=== PATIENT | male | born 1965 | race Caucasian/White ===

== ENCOUNTER 2024-11-04 14:58 | Outpatient (AMB) | payer BC, SELFPAY ==
--- NOTE | 2024-11-04 15:01 | MHC.OFFVIS ---
Vital Signs 11/04/24 15:04 Height 5 ft 2.5 in Weight 112 lb 6.972 oz BMI 20.2 BP 130/72 Blood Pressure Location Lt brachial Position Sitting Pulse 50 Pulse Source Pulse Oximeter Pulse Oximetry (%) 100 Oxygen Delivery Method Room Air Intake Visit Reasons: Pulm Nodule/Bronchiectasis Formal Wear Rental Clerk Required: No Accompanied by: Self / Same As Patient Allergies No Known Allergies Allergy (Verified 11/04/24 15:06) HPI Comments Details: The patient is here for pulmonary evaluation. 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 She did not require any chemotherapy. She did have a CT scan of the chest back in 2018 at [facility] which I reviewed. She had a small subcentimeter pulmonary nodule in the right upper lobe. No evidence of any bronchiectasis that I could appreciate him mucus plugging. Subsequently after that she did have a CT scan of the chest that also personally reviewed from 2023 [facility]. It appears that she does have some bronchiectatic looking airways primarily left more than right base. But very minimal. No evidence of any mucus plugging. Pulmonary still significantly small now with 2 micro nodules in the right upper lobe area. The patient states that she then had another CAT scan in 2024 at [facility] which I do not have those images available. Did describe some bronchiectatic changes some mucus plugging per report. Will try to get those images as well. To see if the bronchiectatic airways are any significantly different. As far as cough the patient does have some chest congestion some cough at times. Denies any shortness of breath. She stays very active at the gym. Denies any wheezing. She does not use any inhalers. She had a spirometry that at some point which was ?normal ?. He has not had a formal pulmonary function study however. Will go ahead and request her CAT scan from [facility] and will request formal pulmonary function studies at this time. Based on the fact that there is a history of bronchiectasis I do believe the CPT device such as an Acapella valve will be helpful to provide mucus clearing. Will hold off on blood work right now until we can visualize the CAT scan images done at [facility]. Nor inhalers also warranted at this time. Will follow-up in 4 months after her PFTs and if any issues arise she can always call further recommendations. PFSH Medical History (Updated 11/04/24 @ 21:48 by Chip Uribe MD) Sarcoma Bronchiectasis Pulmonary nodules Social History (Updated 11/04/24 @ 15:08 by Mirella Giles CMA) Patient Tobacco Use Status: Former Tobacco user Review of Systems Const Denies fever(s) Eyes Reports no additional complaints ENT Reports no additional complaints Card Denies chest pain Resp Reports chest congestion, Reports cough and Denies wheezing GI Reports no additional complaints Musc Reports no additional complaints and Reports as per HPI Skin/Breast Denies rash Neuro Reports no additional complaints Endo Reports no additional complaints Riaz/Lymph Reports no additional complaints Aller/Immun Denies wheezing Physical Exam Vital Signs: Last Vital Signs Pulse 50 11/04/24 15:04 BP 130/72 11/04/24 15:04 Pulse Ox 100 11/04/24 15:04 Oxygen Delivery Method Room Air 11/04/24 15:04 BMI result Body Mass Index 20.2 Const General: comfortable HEENT Head: Yes normocephalic Neck Neck: Yes supple Chest Chest palpation & inspection: normal inspection of the chest Resp Effort & Inspection: normal respiratory effort Auscultation: clear to auscultation bilaterally Cardio Heart sounds: S1 normal heart sound present and S2 normal heart sound present GI Palpation (GI): Soft to palpation Skin General skin exam: no rashes or lesions noted Extrem General: Yes no clubbing, cyanosis or edema Assessment & Plan Assessment & Plan (1) Pulmonary nodules: Code(s): R91.8 - Other nonspecific abnormal finding of lung field Category: Medical (2) Bronchiectasis: Code(s): J47.9 - Bronchiectasis, uncomplicated Category: Medical Qualifiers: Bronchiectasis type: uncomplicated Qualified Code(s): J47.9 - Bronchiectasis, uncomplicated Plan Requesting last CT chest from [facility] PFTs Start CPT with acapella valve/flutter valve consider Bloodwork depending on the CT chest findings F/U 4 months Orders: Orders PFT pulmonary function test 2 Months J47.9 - Bronchiectasis, uncomplicated Coding Level of Care Code New Pt Level 4 (19625) Diagnoses Pulmonary nodules R91.8 Bronchiectasis without complication J47.9 Bronchiectasis type: uncomplicated Time Spent (min) 45
[2024-11-04 15:04] VITALS: BP 130/72; PULSE 50; O2SAT 100; BMI 20.2
--- OUTSIDE RECORDS SUMMARY | 2024-11-04 15:48 | XMS_ITS | Clinical Summary ---
Author Organization [facility] Address [address] [place] [address] Care Team Providers Care Operations Research Analyst Name Role Phone Unavailable Primary Care Provider Unavailabl e Allergies No known active allergies Immunizations Name Administration Dates Next Due Covid-19 (Moderna 12+) 100mcg/0.5mL dosage 05/14,04/16/2020 Social History Tobacco Use Types Packs/Day Years Used Date Smoking Tobacco: Never Assessed Sex and Gender Information Value Date Recorded Sex Assigned at Female 04/16/2020 9:47 AM EST Gender Identity Not on file Sexual Orientation Not on file Job Start Date Occupation Industry Not on file Not on file Not on file Plan of Treatment Health Maintenance Due Date Last Done Comments Hepatitis C Screening 1963 Depression Screening 1975 Preventative Health Evaluation 1981 DTap / Tdap / Td (1 - Tdap) 1982 Cervical Cancer Screening (Pap Smear) 1984 Colon Cancer Screening (Colonoscopy) 2008 Breast Cancer Screening (Mammogram) 2013 Shingrix-Zoster Vaccine (1 o f 2) 2013 COVID-19 Vaccine ( - 2023-2 5 season) 2023 05/14/2020, 04/16/2020 Influenza Vaccine (#1) 2024 RSV Adult > 60+ Yrs or (1 - 1-dose 75+ series) 2038 Hepatitis B Vaccines Aged Out No long er eligible based on patient's age to complete this topic Pneumococcal Vaccine Aged Out No long er eligible based on patient's age to complete this topic RSV Ped < 20 months Aged Out No longe r eligible based on patient's age to complete this topic
--- OUTSIDE RECORDS SUMMARY | 2024-11-04 15:48 | XMS_ITS | Encounter Summary ---
Author Organization [facility] Address [address] [place] [address] [place] [address] Phone Care Team Providers Care Reproduction Machine Loader Name Role Phone Justin Bangura MD Primary Care Provider [phone] Justin Bangura MD Unavailable [phone] Lara Ontiveros MD Unavailable [phone] Massiel Devine MD, MPH Unavailable Adam Ngo MD, MS Unavailable Yonas Hernández MD Unavailable [phone] Encounter Details Date Type Department Care Team (Late st Contact Info) Description 04/27/2020 Procedure Pass [facility] Imaging Department, [facility] [place] [address] [facility], Floor [address]1 [place] [address] Social History Tobacco Use Types Packs/Day Years Used Date Smoking Tobacco: Former Cigarettes 1.5 15 1 978 - 1992 Smokeless Tobacco: Never Alcohol Use Standard Drinks/Week Comments Yes 14 (1 standard drink = 0.6 oz pu re alcohol) 2/day Comments No Sex and Gender Information Value Date Recorded Sex Assigned at Not on file Legal Sex Female 5:54 PM EST Gender Identity Not on file Sexual Orientation Not on file documented as of this encounter Plan of Treatment Upcoming Encounters Date Type Department Care Team (Late st Contact Info) Description 08/13/2024 Procedure Pass [facility] [address] [place] [address] 08/13/2024 Procedure Pass [facility] [address] [place] [address] 08/22/2025 10:30 AM EDT Appointment [facility] Radiology [address] [place] [address] Lara Ontiveros MD [address] [place] [address] [email or web address] 08/26/2025 2:00 PM EDT Office [facility], [facility] [place] [address] [place] [address], 6th [place] [address] Lara Ontiveros MD [address] [place] [address] [email or web address] documented as of this encounter Visit Diagnoses Not on filedocumented in this encounter Care Teams Reproduction Machine Loader Relationship Specialty Start Date End Date Justin Bangura MD [address] [place] [address] PCP - General Internal Medicine 12/23/18 Justin Bangura MD [address] [place] [address] Referring Physician Internal Medicine 12/23/18 Lara Ontiveros MD [address] [place] [address] [email or web address] Primary Oncologist Medical Oncology 12/23/18 Massiel Devine MD, MPH [address] [place] [address] [email or web address] Primary Oncologist Radiation Oncology 12/23/18 Adam Ngo MD, MS [address] [place] [address] [email or web address] Primary Oncologist Surgical Oncology 12/23/18 Yonas Hernández MD [address] [place] [address] Referring Physician Hematology and Oncology 01/06/19 documented as of this encounter Additional Source Comments The information contained in this document represents components of the legal health record. It is not the complete legal health record.[facility]
== END 2024-11-04 15:43 | disposition home or self-care (01) ==
LOC: HO.HPS 14:58
PROVIDERS: PCP Internal Medicine; Referring Provider Internal Medicine; Visit Provider Hospitalist
DX: R91.8 Other nonspecific abnormal finding of lung field (principal); J47.9 Bronchiectasis, uncomplicated
CPT/HCPCS: 99204

== ENCOUNTER 2025-01-28 07:53 | Outpatient (REF) | payer BC, SELFPAY ==
--- NOTE | 2025-01-28 07:56 | PFT_ITS ---
Indication: Bronchiectasis Spirometry FEV1 to FVC 74%; FEV1 2.37 L; FVC 3.22 L. The patient declined bronchodilators. Lung Volumes Total lung capacity 97% predicted Diffusion Capacity DLCO 96% predicted Methacholine Challenge [] Flow Volume Loops Slight concavity to the expiratory limb suggesting obstructive physiology MVV 140% predicted Comparisons None Interpretation No definitive obstructive nor restrictive ventilatory defects identified. No bronchodilators were used. Lung volumes are normal and diffusing capacity within normal limits. The patient does have slight obstructive physiology on her flow volume loop but otherwise normal findings. Clinical correlation warranted. MTDD
--- OUTSIDE RECORDS SUMMARY | 2025-01-28 07:56 | XMS_ITS | Clinical Summary ---
Author Organization [facility] Address [address] [place] [address] [place] [address] Phone Care Team Providers Care Tractor Trailer Operator Name Role Phone Justin Bangura MD Primary Care Provider [phone] Justin Bangura MD Unavailable [phone] Lara Ontiveros MD Unavailable [phone] Massiel Devine MD, MPH Unavailable [phone] Adam Ngo MD, MS Unavailable Yonas Hernández MD Unavailable [phone] Allergies No known active allergies Medications ibuprofen (ADVIL,MOTRIN) 600 MG tablet Take 1 tablet (600 mg total) by mouth every 6 (six) hours as needed for pain (specific location in comments). 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 Family History Medical History Relation Comments Aortic aneurysm Father Heart disease Father Throat cancer Father Breast cancer Maternal Aunt 1 Breast cancer Maternal Aunt 2 Breast cancer Paternal Grandmother Relation Status Comments Father smoker, h/o HPV Maternal Aunt 1 Maternal Aunt 2 Paternal Grandmother Social History Tobacco Use Types Packs/Day Years Used Date Smoking Tobacco: Former Cigarettes 1.5 15 1 978 - 1992 Smokeless Tobacco: Never Alcohol Use Standard Drinks/Week Comments Yes 14 (1 standard drink = 0.6 oz pu re alcohol) 2/day Education Answer Date Recorded Are you interested in more education? Not on devonte e 08/20/2022 Are you concerned about learning? Not on file 08/20/2022 No 08/20/2022 No 08/20/2022 Digital Access Answer Date Recorded No 09/01/2022 No 09/01/2022 Reliable internet access at home? Not on file 09/01/2022 Device with a working camera? Not on file Comments No Sex and Gender Information Value Date Recorded Sex Assigned at Not on file Legal Sex Female 5:54 PM EST Gender Identity Not on file Sexual Orientation Not on file Last Filed Vital Signs Vital Sign Reading Time Taken Comments Blood Pressure 112/75 08/13/2024 9:23 AM EDT Pulse 53 08/13/2024 9:23 AM EDT Temperature 36.5 C (97.7 F) 08/13/2024 9:23 AM EDT Respiratory Rate 18 08/13/2024 9:23 AM EDT Oxygen Saturation 98% 08/13/2024 9:23 AM EDT Inhaled Oxygen Concentration - - Weight 52 kg (114 lb 10.2 oz) 08/13/2024 9:23 AM EDT Height 157.8 cm (5' 2.13 ) 08/13/2024 9:23 AM ED T Body Mass Index 20.88 08/13/2024 9:23 AM EDT Plan of Treatment Upcoming Encounters Date Type Department Care Team (Late st Contact Info) Description 08/13/2024 Procedure Pass [facility] [address] [place] [address] 08/13/2024 Procedure Pass [facility] [address] [place] [address] 08/22/2025 10:30 AM EDT Appointment [facility] [address] [place] [address] Lara Ontiveros MD [address] [place] [address] [email or web address] 08/26/2025 2:00 PM EDT Office Visit [facility], [facility] [place] [address] [place] [address], 6th [place] [address] Lara Ontiveros MD [address] [place] [address] [email or web address] Health Maintenance Due Date Last Done Comments LIPID PANEL 1963 DEPRESSION SCREENING 1975 SMOKING Hx and SMOKELESS TOBACCO SCREENING 1976 HEPATITIS C SCREENING 1981 HIV ONE-TIME SCREENING (18-6 5 YEARS) 1981 PNEUMOCOCCAL VACCINES (50+ years) (1 of 2 - PCV) 1982 PAP SMEAR 1984 MAMMOGRAM 2003 COLOGUARD 2008 COLONOSCOPY 2008 COLORECTAL CANCER SCREENING 2008 FIT TEST 2008 FOBT 2008 SIGMOIDOSCOPY 2008 VIRTUAL COLONOSCOPY 2008 INFLUENZA VACCINE (#1) 2024 9, 02/03/2015, 04/14/2014 COVID-19 VACCINE (3 - 2024-2 6 season) 2024 05/14/2021, 04/16/2020 Adult Td,Tdap Booster 10/30/2033 10/31/2023 RSV VACCINE (1 - 1-dose 75+ series) 2038 ZOSTER VACCINES Completed 07/25/2022, 01/23/2022 HEPATITIS A VACCINES Aged Out No long er eligible based on patient's age to complete this topic HIB VACCINES Aged Out No longer eligi ble based on patient's age to complete this topic MENINGOCOCCAL VACCINES (ACWY) Aged Out No longer eligible based on patient's age to complete this topic MENINGOCOCCAL VACCINES (B) Aged Out N o longer eligible based on patient's age to complete this topic Medical Devices Implanted Type Area Directory Compiler Device Identifier Shelf Expiration Date Model / Serial / Lot Graft Mesh 8x10in Phasix Synthetic Monofilament Woven Resorbable Rectangular - [id number] Implanted:Qty: 1 on 04/08/2019 by Adam Ngo MD, MS at [facility] DAVOL 10/04/2020 [id number] / / [id number] K-Wire Bone 9in 0.062 Ss Smooth [place] Dual Pk/6ea - [id number] Implanted:Qty: 1 on 04/08/2019 by Adam Ngo MD, MS at [facility] Abdomen [employer] [id number] / / Insurance OUT [facility] [place] [address] [place] [address] OUT OF STATE PPO BLUE [employer]OSS OUT OF STATE PPO [employer] OUT OF STATE PPO [employer] OUT OF STATE PPO [facility] OUT OF STATE PPO Advance Directives For more information, please contact: [phone] (9AM - 5PM [facility], Sunday-Sunday) * Full Code (Presumed) (Latest Code Status on File) Date Activated Date Inactivated Comments 04/08/2019 1:40 PM 04/10/2019 2:37 PM * Full Code (Presumed) Date Activated Date Inactivated Comments 04/08/2019 6:36 AM 04/08/2019 1:40 PM Care Teams Tractor Trailer Operator Relationship Specialty Start Date End Date Justin Bangura MD [address] [place] [address] PCP - General Internal Medicine 12/23/18 Justin Bangura MD [address] [address] Referring Physician Internal Medicine 12/23/18 Lara Ontiveros MD [address] [place] [address] [email or web address] Primary Oncologist Medical Oncology 12/23/18 Massiel Devine MD, MPH [address] [place] [address] [email or web address] Primary Oncologist Radiation Oncology 12/23/18 Adam Ngo MD, MS [address] [place] [address] [email or web address] Primary Oncologist Surgical Oncology 12/23/18 Yonas Hernández MD [address] [place] [address] Referring Physician Hematology and Oncology 01/06/19 Additional Source Comments The information contained in this document represents components of the legal health record. It is not the complete legal health record.[facility]
--- OUTSIDE RECORDS SUMMARY | 2025-01-28 07:56 | XMS_ITS | Encounter Summary ---
Author Organization [facility] Address [address] [place] [address] [place] [address] Phone Care Team Providers Care Casting Machine Control Board Operator Name Role Phone Justin Bangura MD Primary Care Provider [phone] Justin Bangura MD Unavailable [phone] Lara Ontiveros MD Unavailable [phone] Massiel Devine MD, MPH Unavailable + [phone] Adam Ngo MD, MS Unavailable Yonas Hernández MD Unavailable [phone] Encounter Details Date Type Department Care Team (Late st Contact Info) Description 01/21/2019 Procedure Pass [facility] Imaging Department, [facility] [place], MRI [address] [address] Social History Tobacco Use Types Packs/Day Years Used Date Smoking Tobacco: Former Cigarettes 1.5 15 1 978 - 1992 Smokeless Tobacco: Never Alcohol Use Standard Drinks/Week Comments Yes 6 (1 standard drink = 0.6 oz pur e alcohol) Comments Unknown Sex and Gender Information Value Date Recorded Sex Assigned at Not on file Legal Sex Female 5:54 PM EST Gender Identity Not on file Sexual Orientation Not on file documented as of this encounter Plan of Treatment Upcoming Encounters Date Type Department Care Team (Late st Contact Info) Description 08/13/2024 Procedure Pass [facility] [address] [place] [address] 08/13/2024 Procedure Pass [facility] [address] [place] [address] 08/22/2025 10:30 AM EDT Appointment [facility] Radiology [address] [place] [address] Lara Ontiveros MD [address] [place] [address] [email or web address] 08/26/2025 2:00 PM EDT [facility] [place] [address] [place] [address], 6th [place] [address] Lara Ontiveros MD [address] [place] [phone] [email or web address] documented as of this encounter Visit Diagnoses Not on filedocumented in this encounter Care Teams Casting Machine Control Board Operator Relationship Specialty Start Date End Date Justin Bangura MD [address] [place] [address] PCP - General Internal Medicine 12/23/18 Justin Bangura MD [address] [place] [address] Referring Physician Internal Medicine 12/23/18 Lara Ontiveros MD [address] [place] [address] [email or web address] Primary Oncologist Medical Oncology 12/23/18 Massiel Devine MD, MPH [address] [place] [phone] [email or web address] Primary Oncologist Radiation Oncology 12/23/18 Adam Ngo MD, MS [address] [place] [address] [email or web address] Primary Oncologist Surgical Oncology 12/23/18 Yonas Hernández MD [address] [place] [address] Referring Physician Hematology and Oncology 01/06/19 documented as of this encounter Additional Source Comments The information contained in this document represents components of the legal health record. It is not the complete legal health record.[facility]
--- OUTSIDE RECORDS SUMMARY | 2025-01-28 07:56 | XMS_ITS | Encounter Summary ---
Author Organization [facility] Address [address] [place] [address] [place] [address] Phone Care Team Providers Care Fruit Receiver Name Role Phone Justin Bangura MD Primary Care Provider [phone] Justin Bangura MD Unavailable [phone] Lara Ontiveros MD Unavailable [phone] Massiel Devine MD, MPH Unavailable + [phone] Adam Ngo MD, MS Unavailable Yonas Hernández MD Unavailable [phone] Encounter Details Date Type Department Care Team (Late st Contact Info) Description 04/27/2020 Procedure Pass [facility] Imaging Department, [facility] [place], [place] [address] [facility], Floor [address] [place] [address] Social History Tobacco Use Types Packs/Day Years [...] Procedure [facility] [address] [place] [address] 08/13/2024 Procedure Pass [facility] [address] [place] [address] 08/22/2025 10:30 AM EDT Appointment [facility] Radiology [address] [place] [address] Lara Ontiveros MD [address] [place] [phone] [email or web address] 08/26/2025 2:00 PM EDT Office Visit [facility], [facility] [place] [address] [place] [address], 6th [place] [address] Lara Ontiveros MD [address] [place] [address] [email or web address] documented as of this encounter Visit Diagnoses Not on filedocumented in this encounter Care Teams Fruit Receiver Relationship Specialty Start Date End Date Justin Bangura MD [address] [place] [address] [address] PCP - General Internal Medicine 12/23/18 Justin Bangura MD [facility] [place] [address] [address] Referring Physician Internal Medicine 12/23/18 Lara Ontiveros MD [address] [place] [phone] [email or web address] Primary Oncologist Medical Oncology 12/23/18 Massiel Devine MD, MPH [address] [place] [phone] [email or web address] Primary Oncologist Radiation Oncology 12/23/18 Adam Ngo MD, MS [address] [place] [address] [email or web address] Primary Oncologist Surgical Oncology 12/23/18 Yonas Hernández MD [address] [place] [address] Referring Physician Hematology and Oncology 01/06/19 documented as of this encounter Additional Source Comments The information contained in this document represents components of the legal health record. It is not the complete legal health record.[facility]
--- OUTSIDE RECORDS SUMMARY | 2025-01-28 07:56 | XMS_ITS | Encounter Summary ---
Author Organization [facility] Address [address] [place] [address] [place] [address] Phone Care Team Providers Care Bleach Machine Operator Name Role Phone Justin Bangura MD Primary Care Provider [phone] Justin Bangura MD Unavailable [phone] Lara Ontiveros MD Unavailable +[phone] Massiel Devine MD, MPH Unavailable + [phone] Adam Ngo MD, MS Unavailable Yonas Hernández MD Unavailable [phone] Encounter Details Date Type Department Care Team (Late st Contact Info) Description 12/23/2019 Procedure Pass [facility] Imaging Department, [facility] [place] 450 [facility], Floor L1 [place] [address] Social History Tobacco Use Types Packs/Day Years Used Date Smoking Tobacco: Former Cigarettes 1.5 15 1 978 - 1993 Smokeless Tobacco: Never Alcohol Use Standard Drinks/Week [...] Procedure Pass [facility] [address] [place] [address] 08/13/2024 Procedure Pass [facility] Radiology [address] [place] [address] 08/22/2025 10:30 AM EDT Appointment [facility] Radiology [address] [place] [address] Lara Ontiveros MD [address] [place] [address] [email or web address] 08/26/2025 2:00 PM EDT Office [facility], [facility] [place] [address] [place] [address], 6th [place] [address] Lara Ontiveros MD [address] [place] [address] [email or web address] documented as of this encounter Visit Diagnoses Not on filedocumented in this encounter Care Teams Bleach Machine Operator Relationship Specialty Start Date End Date Justin Bangura MD [address] [address] PCP - General Internal Medicine 12/23/18 Justin Bangura MD [address] [address] Referring Physician Internal Medicine 12/23/18 Lara Ontiveros MD [address] [place] [address] [email or web address] Primary Oncologist Medical Oncology 12/23/18 Massiel Devine MD, MPH [address] [place] [address] [email or web address] Primary Oncologist Radiation Oncology 12/23/18 Adam Ngo MD, MS [address] [place] [address] SEDA@[email or web address] Primary Oncologist Surgical Oncology 12/23/18 Yonas Hernández MD [address] [place] [address] Referring Physician Hematology and Oncology 01/06/19 documented as of this encounter Additional Source Comments The information contained in this document represents components of the legal health record. It is not the complete legal health record.[facility]
--- OUTSIDE RECORDS SUMMARY | 2025-01-28 07:56 | XMS_ITS | Encounter Summary ---
Author Organization [facility] Address [address] [place] [address] [place] [address] Phone Care Team Providers Care Lamination Inspector Name Role Phone Justin Bangura MD Primary Care Provider [phone] Justin Bangura MD Unavailable [phone] Lara Ontiveros MD Unavailable [phone] Massiel Devine MD, MPH Unavailable + [phone] Adam Ngo MD, MS Unavailable Yonas Hernández MD Unavailable [phone] Encounter Details Date Type Department Care Team (Late st Contact Info) Description 12/23/2019 Procedure Pass [facility] Imaging Department, [facility] [facility] [place], [place] 450 [facility], Floor L1 [place] [address] Social History Tobacco Use Types Packs/Day Years [...] Procedure Pass [facility] 70 [place] [address] 08/13/2024 Procedure Pass [facility] Radiology 70 [place] [address] 08/22/2025 10:30 AM EDT Appointment [facility] Radiology 70 [place] [address] Lara Ontiveros MD [address] [place] [address] Rhonda@[email or web address] 08/26/2025 2:00 PM EDT Office Visit [facility], [facility] [place] [address] [place] [address], 6th [place] [address] Lara Ontiveros MD [address] [place] [address] Rhonda@[email or web address] documented as of this encounter Visit Diagnoses Not on filedocumented in this encounter Care Teams Lamination Inspector Relationship Specialty Start Date End Date Justin Bangura MD [address] [address] PCP - General Internal Medicine 12/23/18 Justin Bangura MD [address] [address] Referring Physician Internal Medicine 12/23/18 Lara Ontiveros MD [address] [place] [address] [email or web address] Primary Oncologist Medical Oncology 12/23/18 Massiel Devine MD, MPH [address] [place] [address] [email or web address] Primary Oncologist Radiation Oncology 12/23/18 Adam Ngo MD, MS [address] [place] [address] SEDA@[email or web address] Primary Oncologist Surgical Oncology 12/23/18 Yonas Hernández MD [address] [place] [address] Referring Physician Hematology and Oncology 01/06/19 documented as of this encounter Additional Source Comments The information contained in this document represents components of the legal health record. It is not the complete legal health record.[facility]
--- OUTSIDE RECORDS SUMMARY | 2025-01-28 07:56 | XMS_ITS | Clinical Summary ---
Author Organization [facility] Address [address] [place] [address] Care Team Providers Care Commercial Accountant Name Role Phone Unavailable Primary Care Provider [...] (1 o f 2) 2013 COVID-19 Vaccine (2024-2 6 season) 2024 05/14/2020, 04/16/2020 Influenza Vaccine (#1) 2024 RSV [...]
--- OUTSIDE RECORDS SUMMARY | 2025-01-28 07:56 | XMS_ITS | Encounter Summary ---
Author Organization [facility] Address [address] [place] [address] Phone Care Team Providers Care General Repairer Name Role Phone Justin Bangura MD Primary Care Provider [phone] Justin Bangura MD Unavailable [phone] Lara Ontiveros MD Unavailable [phone] Massiel Devine MD, MPH Unavailable + [phone] Adam Ngo MD, MS Unavailable Yonas Hernández MD Unavailable [phone] Encounter Details Date Type Department Care Team (Late st Contact Info) Description 11/13/2023 Procedure Pass [facility] 70 [place] [address] Social History Tobacco Use Types Packs/Day Years [...] st Contact Info) Description 08/13/2024 Procedure Pass [facility] Radiology 70 [place] [address] 08/13/2024 Procedure Pass [facility] Radiology 70 [place] [address] 08/22/2025 10:30 AM EDT Appointment [facility] Radiology [address] [place] [address] Lara Ontiveros MD [address] [place] [address] [email or web address]@[email or web address] 08/26/2025 2:00 PM EDT Office Visit [facility], [facility] [place] [address] [place] [address], 6th [place] [address] Lara Ontiveros MD [address] [place] [address] [email or web address]@[email or web address] documented as of this encounter Visit Diagnoses Not on filedocumented in this encounter Care Teams General Repairer Relationship Specialty Start Date End Date Justin Bangura MD [address] [employer] [place] [address] PCP - General Internal Medicine 12/23/18 Justin Banguar MD [address] [place] [address] Referring Physician Internal Medicine 12/23/18 Lara Ontiveros MD [address] [place] [address] Rhonda@[email or web address] Primary Oncologist Medical Oncology 12/23/18 Massiel Devine MD, MPH [address] [place] [address] [email or web address] Primary Oncologist Radiation Oncology 12/23/18 Adam Ngo MD, MS [address] [place] [address] SEDA@[email or web address] Primary Oncologist Surgical Oncology 12/23/18 Yonas Hernández MD [address] [place] [address] Referring Physician Hematology and Oncology 01/06/19 documented as of this encounter Additional Source Comments The information contained in this document represents components of the legal health record. It is not the complete legal health record.[facility]
--- OUTSIDE RECORDS SUMMARY | 2025-01-28 07:56 | XMS_ITS | Encounter Summary ---
Author Organization [facility] Address [address] [place] [address] [place] [address] Phone Care Team Providers Care Cookie Mixer Helper Name Role Phone Justin Bangura MD Primary Care Provider [phone] Justin Bangura MD Unavailable [phone] Lara Ontiveros MD Unavailable [phone] Massiel Devine MD, MPH Unavailable + [phone] Adam Ngo MD, MS Unavailable Yonas Hernández MD Unavailable [phone] Encounter Details Date Type Department Care Team (Late st Contact Info) Description 04/08/2019 Procedure Pass [facility] Periop [address] [place] [address] Social History Tobacco Use Types Packs/Day Years [...] st Contact Info) Description 08/13/2024 Procedure Pass [facility] Radiology [address] [place] [address] 08/13/2024 Procedure Pass [facility] [address] [place] [address] 08/22/2025 10:30 AM EDT Appointment [facility] Radiology [address] [place] [address] Lara Ontiveros MD [address] [place] [address] Rhonda@[email or web address] 08/26/2025 2:00 PM EDT Office [facility] [place] [address] [place] [address], 6th [place] [address] Lara Ontiveros MD [address] [place] [address] [email or web address] documented as of this encounter Visit Diagnoses Not on filedocumented in this encounter Care Teams Cookie Mixer Helper Relationship Specialty Start Date End Date Justin Bangura MD [address] [place] [address] PCP - General Internal Medicine 12/23/18 Justin Bangura MD [address] [place] [address] Referring Physician Internal Medicine 12/23/18 Lara Ontiveros MD [address] [place] [address] Rhonda@[email or web address] Primary Oncologist Medical Oncology 12/23/18 Massiel Devine MD, MPH [address] [place] [address] [email or web address] Primary Oncologist Radiation Oncology 12/23/18 Adam Ngo MD, MS [address] [place] [address] [email or web address] Primary Oncologist Surgical Oncology 12/23/18 Yonas Hernández MD [address] [place] [address] Referring Physician Hematology and Oncology 01/06/19 documented as of this encounter Additional Source Comments The information contained in this document represents components of the legal health record. It is not the complete legal health record.[facility]
--- OUTSIDE RECORDS SUMMARY | 2025-01-28 07:56 | XMS_ITS | Encounter Summary ---
Author Organization [facility] Address [address] [place] [address] [place] [address] Phone Care Team Providers Care Refiner Operator Name Role Phone Justin Bangura MD Primary Care Provider + [phone] Justin Bangura MD Unavailable [phone] Lara Ontiveros MD Unavailable [phone] Massiel Devine MD, MPH Unavailable + [phone] Adam Ngo MD, MS Unavailable Yonas Hernández MD Unavailable [phone] Encounter Details Date Type Department Care Team (Late st Contact Info) Description 01/06/2019 Procedure Pass [facility] MR Imaging, [place] [address] [place] [address] Social History Tobacco Use Types Packs/Day Years [...] on file documented as of this encounter Last Filed Vital Signs Vital Sign Reading Time Taken Comments Blood Pressure - - Pulse - - Temperature - - Respiratory Rate - - Oxygen Saturation - - Inhaled Oxygen Concentration - - Weight 51.7 kg (114 lb) 01/06/2019 4:39 PM EDT Height 160 cm (5' 3 ) 01/06/2019 4:39 PM EDT Body Mass Index 20.19 01/06/2019 4:39 PM EDT documented in this encounter Plan of Treatment Upcoming Encounters Date Type Department Care Team (Late st Contact Info) Description 08/13/2024 Procedure Pass [facility] Radiology 70 [place] [address] 08/13/2024 Procedure Pass [facility] Radiology 70 [place] [address] 08/22/2025 10:30 AM EDT Appointment [facility] Radiology [address] [place] [address] Lara Ontiveros MD [address] [place] [address] Rhonda@[email or web address] 08/26/2025 2:00 PM EDT Office Visit [facility], [facility] [address], 6th [place] [address] Lara Ontiveros MD [address] [place] [address] Rhonda@[email or web address] documented as of this encounter Visit Diagnoses Not on filedocumented in this encounter Care Teams Refiner Operator Relationship Specialty Start Date End Date Justin Bangura MD [address] [place] [address] PCP - General Internal Medicine 12/23/18 Justin Bangura MD [address] [place] [address] Referring Physician Internal Medicine 12/23/18 Lara Ontiveros MD [address] [place] [address] Rhonda@[email or web address] Primary Oncologist Medical Oncology 12/23/18 Massiel Devine MD, MPH [address] [place] [address] Princess@[email or web address] Primary Oncologist Radiation Oncology 12/23/18 Adam Ngo MD, MS [address] [place] [address] SEDA@[email or web address] Primary Oncologist Surgical Oncology 12/23/18 Yonas Hernández MD [address] [place] [address] Referring Physician Hematology and Oncology 01/06/19 documented as of this encounter Additional Source Comments The information contained in this document represents components of the legal health record. It is not the complete legal health record.[facility]
--- OUTSIDE RECORDS SUMMARY | 2025-01-28 07:56 | XMS_ITS | Encounter Summary ---
Author Organization [facility] Address [address] [place] [address] [place] [address] Phone Care Team Providers Care Facility Specialist Name Role Phone Justin Bangura MD Primary Care Provider [phone] Justin Bangura MD Unavailable [phone] Lara Ontiveros MD Unavailable [phone] Massiel Devine MD, MPH Unavailable + [phone] Adam Ngo MD, MS Unavailable Yonas Hernández MD Unavailable [phone] Encounter Details Date Type Department Care Team (Late st Contact Info) Description 04/27/2020 Procedure Pass [facility] Imaging Department, [facility] [place], [place] 450 [facility], Floor L1 [place] [address] Social History Tobacco Use Types Packs/Day Years [...] Procedure Pass [facility] 70 [place] [address] 08/13/2024 Procedure Pass [facility] Radiology 70 [place] [address] 08/22/2025 10:30 AM EDT Appointment [facility] Radiology 70 [place] [address] Lara Ontiveros MD [address] [place] [address] Rhonda@[email or web address] 08/26/2025 2:00 PM EDT Office Visit [facility], [facility] [place] [address] [place] [address], 6th [place] [address] Lara Ontiveros MD [address] [place] [address] Rhonda@[facility] documented as of this encounter Visit Diagnoses Not on filedocumented in this encounter Care Teams Facility Specialist Relationship Specialty Start Date End Date Justin Bangura MD [address] [address] PCP - General Internal Medicine 12/23/18 Justin Bangura MD [facility] [place] [address] [address] Referring Physician Internal Medicine 12/23/18 Lara Ontiveros MD [address] [place] [address] Rhonda@[email or web address] Primary Oncologist Medical Oncology 12/23/18 Massiel Devine MD, MPH [address] [place] [address] [email or web address] Primary Oncologist Radiation Oncology 12/23/18 Adam Ngo MD, MS [address] [place] [address] SEDA@[email or web address] Primary Oncologist Surgical Oncology 12/23/18 Yonas Hernández MD [address] [place] [address] Referring Physician Hematology and Oncology 01/06/19 documented as of this encounter Additional Source Comments The information contained in this document represents components of the legal health record. It is not the complete legal health record.[facility]
--- OUTSIDE RECORDS SUMMARY | 2025-01-28 07:57 | XMS_ITS | Encounter Summary ---
Author Organization [facility] Address [address] [place] [address] [place] [address] Phone Care Team Providers Care Sanitary Engineering Teacher Name Role Phone Justin Bangura MD Primary Care Provider [phone] Justin Bangura MD Unavailable +[phone] Lara Ontiveros MD Unavailable [phone] Massiel Devine MD, MPH Unavailable + [phone] Adam Ngo MD, MS Unavailable Yonas Hernández MD Unavailable [phone] Encounter Details Date Type Department Care Team (Late st Contact Info) Description 05/10/2022 Procedure Pass [facility] Imaging Department, [facility] [place], [place] 450 [facility], Floor L1 [place] [address] Social History Tobacco Use Types Packs/Day Years [...] Procedure Pass [facility] 70 [place] [address] 08/13/2024 Procedure Pass [facility] [place] [facility] Radiology 70 [place] [address] 08/22/2025 10:30 AM EDT Appointment [facility] Radiology 70 [place] [address] Lara Ontiveros MD [address] [place] [address] Rhonda@[email or web address] 08/26/2025 2:00 PM EDT Office Visit [facility], [facility] [place] [address] [place] [address], 6th [place] [address] Lara Ontiveros MD [address] [place] [address] Rhonda@[facility] documented as of this encounter Visit Diagnoses Not on filedocumented in this encounter Care Teams Sanitary Engineering Teacher Relationship Specialty Start Date End Date Justin Bangura MD [address] [address] PCP - General Internal Medicine 12/23/18 Justin Bangura MD [facility] [place] [address] [address] Referring Physician Internal Medicine 12/23/18 Lara Ontiveros MD [address] [place] [address] Rhonda[email or web address] Primary Oncologist Medical Oncology 12/23/18 Massiel Devine MD, MPH [address] [place] [address] [email or web address] Primary Oncologist Radiation Oncology 12/23/18 Adam Ngo MD, MS [address] [place] [address] [email or web address] Primary Oncologist Surgical Oncology 12/23/18 Yonas Hernández MD [address] [place] [address] Referring Physician Hematology and Oncology 01/06/19 documented as of this encounter Additional Source Comments The information contained in this document represents components of the legal health record. It is not the complete legal health record.[facility]
--- OUTSIDE RECORDS SUMMARY | 2025-01-28 07:57 | XMS_ITS | Encounter Summary ---
Author Organization [facility] Address [address] [place] [address] [place] [address] Phone Care Team Providers Care Shield Cleaner Name Role Phone Justin Bangura MD Primary Care Provider [phone] Justin Bangura MD Unavailable [phone] Lara Ontiveros MD Unavailable [phone] Massiel Devine MD, MPH Unavailable + [phone] Adam Ngo MD, MS Unavailable Yonas Hernández MD Unavailable [phone] Encounter Details Date Type Department Care Team (Late st Contact Info) Description 05/03/2021 Procedure Pass [facility] Imaging Department, [facility] [facility] [place], [place] 450 [facility], Floor L1 [place] [address] Social History Tobacco Use Types Packs/Day Years [...] Procedure Pass [facility] 70 [place] [address] 08/13/2024 Procedure Pass [facility]iology [address] [place] [address] 08/22/2025 10:30 AM EDT Appointment [facility] Radiology [address] [place] [address] Lara Ontiveros MD [address] [place] [address] Rhonda@[email or web address] 08/26/2025 2:00 PM EDT Office Visit [facility], [facility] [place] [address] [place] [address], 6th [place] [address] Lara Ontiveros MD [address] [place] [address] Rhonda@[facility] documented as of this encounter Visit Diagnoses Not on filedocumented in this encounter Care Teams Shield Cleaner Relationship Specialty Start Date End Date Justin Bangura MD [address] [employer] [address] [address] PCP - General Internal Medicine 12/23/18 Justin Bangura MD [facility] [employer] [address] [address] Referring Physician Internal Medicine 12/23/18 Lara Ontiveros MD [address] [place] [address] Rhonda@[email or web address] Primary Oncologist Medical Oncology 12/23/18 Massiel Devine MD, MPH [address] [place] [address] [email or web address] Primary Oncologist Radiation Oncology 12/23/18 Adam Ngo MD, MS [address] [place] [address] SEDA@[email or web address] Primary Oncologist Surgical Oncology 12/23/18 Yonas Hernández MD [address] [place] [address] Referring Physician Hematology and Oncology 01/06/19 documented as of this encounter Additional Source Comments The information contained in this document represents components of the legal health record. It is not the complete legal health record.[facility]
--- OUTSIDE RECORDS SUMMARY | 2025-01-28 07:57 | XMS_ITS | Encounter Summary ---
Author Organization [facility] Address [address] [place] [address] [place] [address] Phone Care Team Providers Care Marketing Liaison Name Role Phone Justin Bangura MD Primary Care Provider [phone] Justin Bangura MD Unavailable [phone] Lara Ontiveros MD Unavailable [phone] Massiel Devine MD, MPH Unavailable + [phone] Adam Ngo MD, MS Unavailable Yonas Hernández MD Unavailable [phone] Encounter Details Date Type Department Care Team (Late st Contact Info) Description 05/10/2022 Procedure Pass [facility] Imaging Department, [facility] [place] 450 [facility], Floor L1 [place] [address] Social History Tobacco Use Types Packs/Day Years [...] Procedure Pass [facility] 70 [place] [address] 08/13/2024 Procedure Pass [facility] 70 [place] [address] 08/22/2025 10:30 AM EDT Appointment [facility] Radiology 70 [place] [address] Lara Ontiveros MD [address] [place] [address] [email or web address]@[email or web address] 08/26/2025 2:00 PM EDT Office [facility], [facility] [place] [address] [place] [address], 6th [place] [address] Lara Ontiveros MD [address] [place] [address] [email or web address]@[email or web address] documented as of this encounter Visit Diagnoses Not on filedocumented in this encounter Care Teams Marketing Liaison Relationship Specialty Start Date End Date Justin Bangura MD [address] [facility] [address] [address] PCP - General Internal Medicine 12/23/18 Justin Bangura MD [facility] [address] [address] Referring Physician Internal Medicine 12/23/18 Lara Ontiveros MD [address] [place] [address] Rhonda@[email or web address] Primary Oncologist Medical Oncology 12/23/18 Massiel Devine MD, MPH [address] [place] [address] Princess@[email or web address] Primary Oncologist Radiation Oncology 12/23/18 Adam Ngo MD, MS [address] [place] [address] [email or web address] Primary Oncologist Surgical Oncology 12/23/18 Yonas Hernández MD [address] [place] [address] Referring Physician Hematology and Oncology 01/06/19 documented as of this encounter Additional Source Comments The information contained in this document represents components of the legal health record. It is not the complete legal health record.[facility]
--- OUTSIDE RECORDS SUMMARY | 2025-01-28 07:57 | XMS_ITS | Encounter Summary ---
Author Organization [facility] Address [address] [place] [address] [place] [address] Phone Care Team Providers Care Operational Intelligence Analyst Name Role Phone Justin Bangura MD Primary Care Provider [phone] Justin Bangura MD Unavailable [phone] Lara Ontiveros MD Unavailable [phone] Massiel Devine MD, MPH Unavailable + [phone] Adam Ngo MD, MS Unavailable Yonas Hernández MD Unavailable [phone] Encounter Details Date Type Department Care Team (Late st Contact Info) Description 08/24/2020 Procedure Pass [facility] Imaging Department, [facility] [place] 450 [facility], Floor L1 [place] [address] Social History Tobacco Use Types Packs/Day Years [...] Procedure Pass [facility] 70 [place] [address] 08/13/2024 Procedure Pass [facility] Radiology 70 [place] [address] 08/22/2025 10:30 AM EDT Appointment [facility] Radiology 70 [place] [address] Lara Ontiveros MD [address] [place] [address] Rhonda@[email or web address] beds [facility] 08/26/2025 2:00 PM EDT Office Visit [facility], [facility] [place] [address] [place] [address], 6th [place] [address] Lara Ontiveros MD [address] [place] [address] [email or web address]@[email or web address] 234 beds at [facility] documented as of this encounter Visit Diagnoses Not on filedocumented in this encounter Care Teams Operational Intelligence Analyst Relationship Specialty Start Date End Date Justin Bangura MD [address] [employer] [address] [address] PCP - General Internal Medicine 12/23/18 Justin Bangura MD [facility] [employer] [address] [address] Referring Physician Internal Medicine 12/23/18 Lara Ontiveros MD [address] [place] [address] Rhonda@[email or web address] Primary Oncologist Medical Oncology 12/23/18 Massiel Devine MD, MPH [address] [place] [address] [email or web address] Primary Oncologist Radiation Oncology 12/23/18 Adam Ngo MD, MS [address] [place] [address] SEDA@[email or web address] Primary Oncologist Surgical Oncology 12/23/18 Yonas Hernández MD [address] [place] [address] Referring Physician Hematology and Oncology 01/06/19 documented as of this encounter Additional Source Comments The information contained in this document represents components of the legal health record. It is not the complete legal health record.[facility]
--- OUTSIDE RECORDS SUMMARY | 2025-01-28 07:57 | XMS_ITS | Encounter Summary ---
Author Organization [facility] Address [address] [place] [address] [place] [address] Phone Care Team Providers Care Financial Reserve Clerk Name Role Phone Justin Bangura MD Primary Care Provider [phone] Justin Bangura MD Unavailable [phone] Lara Ontiveros MD Unavailable [phone] Massiel Devine MD, MPH Unavailable + [phone] Adam Ngo MD, MS Unavailable Yonas Hernández MD Unavailable [phone] Encounter Details Date Type Department Care Team (Late st Contact Info) Description 11/20/2019 Procedure Pass [facility] Imaging Department, [facility] [place], [place] 450 [facility], Floor L1 [place] [address] Social History Tobacco Use Types Packs/Day Years [...] Procedure Pass [facility] 70 [place] [address] 08/13/2024 Procedure Pass [facility] Radiology 70 [place] [address] 08/22/2025 10:30 AM EDT Appointment [facility] Radiology 70 [place] [address] Lara Ontiveros MD [address] [place] [address] Rhonda@[email or web address] 08/26/2025 2:00 PM EDT Office Visit [facility], [facility] [place] [address] [place] [address], 6th [place] [address] Lara Ontiveros MD [address] [place] [address] Rhonda@[facility] documented as of this encounter Visit Diagnoses Not on filedocumented in this encounter Care Teams Financial Reserve Clerk Relationship Specialty Start Date End Date Justin Bangura MD [address] [employer] [address] [address] PCP - General Internal Medicine 12/23/18 Justin Bangura MD [address] [employer] [address] [address] Referring Physician Internal Medicine 12/23/18 Lara Ontiveros MD [address] [place] [address] Rhonda@[email or web address] Primary Oncologist Medical Oncology 12/23/18 Massiel Devine MD, MPH [address] [place] [address] Princess@[email or web address] Primary Oncologist Radiation Oncology 12/23/18 Adam Ngo MD, MS [address] [place] [address] SEDA@[email or web address] Primary Oncologist Surgical Oncology 12/23/18 Yonas Hernández MD [address] [place] [address] Referring Physician Hematology and Oncology 01/06/19 documented as of this encounter Additional Source Comments The information contained in this document represents components of the legal health record. It is not the complete legal health record.[facility]
--- OUTSIDE RECORDS SUMMARY | 2025-01-28 07:57 | XMS_ITS | Encounter Summary ---
Author Organization [facility] Address [address] [place] [address] [place] [address] Phone Care Team Providers Care Straightener Hand Name Role Phone Justin Bangura MD Primary Care Provider [phone] Justin Bangura MD Unavailable [phone] Lara Ontiveros MD Unavailable [phone] Massiel Devine MD, MPH Unavailable + [phone] Adam Ngo MD, MS Unavailable Yonas Hernández MD Unavailable [phone] Encounter Details Date Type Department Care Team (Late st Contact Info) Description 12/28/2020 Procedure Pass [facility] Imaging Department, [place] [place] 450 [facility], Floor L1 [place] [address] Social History Tobacco Use Types Packs/Day Years [...] Procedure Pass [facility] 70 [place] [address] 08/13/2024 Procedure Pass [facility]iology 70 [place] [address] 08/22/2025 10:30 AM EDT Appointment [facility] Radiology 70 [place] [address] Lara Ontiveros MD [address] [place] [address] Rhonda@[facility] 08/26/2025 2:00 PM EDT Office Visit [facility], [facility] [place] [address] [place] [address], 6th [place] [address] Lara Ontiveros MD [address] [place] [address] Rhonda@[facility] documented as of this encounter Visit Diagnoses Not on filedocumented in this encounter Care Teams Straightener Hand Relationship Specialty Start Date End Date Justin Bangura MD [address] [employer] [address] [address] PCP - General Internal Medicine 12/23/18 Justin Bangura MD [facility] [employer] [address] [address] Referring Physician Internal Medicine 12/23/18 Lara Ontiveros MD [address] [place] [address] Rhonda@[email or web address] Primary Oncologist Medical Oncology 12/23/18 Massiel Devine MD, MPH [address] [place] [address] Princess@[email or web address] Primary Oncologist Radiation Oncology 12/23/18 Adam Ngo MD, MS [address] [place] [address] SEDA@[email or web address] Primary Oncologist Surgical Oncology 12/23/18 Yonas Hernández MD [address] [place] [address] Referring Physician Hematology and Oncology 01/06/19 documented as of this encounter Additional Source Comments The information contained in this document represents components of the legal health record. It is not the complete legal health record.[facility]
--- OUTSIDE RECORDS SUMMARY | 2025-01-28 07:57 | XMS_ITS | Encounter Summary ---
Author Organization [facility] Address [address] [facility] [address] [place] [address] Phone Care Team Providers Care Benzene Washer Operator Name Role Phone Justin Bangura MD Primary Care Provider [phone] Justin Bangura MD Unavailable [phone] Lara Ontiveros MD Unavailable [phone] Massiel Devine MD, MPH Unavailable + [phone] Adam Ngo MD, MS Unavailable Yonas Hernández MD Unavailable [phone] Encounter Details Date Type Department Care Team (Late st Contact Info) Description 11/13/2023 Procedure Pass [facility] 70 [place] [address] Social History Tobacco Use Types Packs/Day Years [...] st Contact Info) Description 08/13/2024 Procedure Pass [facility] Radiology 70 [place] [address] 08/13/2024 Procedure Pass [facility] Radiology 70 [place] [address] 08/22/2025 10:30 AM EDT Appointment [facility] Radiology [address] [place] [address] Lara Ontiveros MD [address] [place] [address] Rhonda@[email or web address] 08/26/2025 2:00 PM EDT Office Visit [facility], [facility] [place] [address] [place] [address], 6th [place] [address] Lara Ontiveros MD [address] [place] [address] Rhonda@[email or web address] documented as of this encounter Visit Diagnoses Not on filedocumented in this encounter Care Teams Benzene Washer Operator Relationship Specialty Start Date End Date Justin Bangura MD [address] [employer] [address] [place] [address] PCP - General Internal Medicine 12/23/18 Justin Bangura MD [address] [employer] [address] [place] [address] Referring Physician Internal Medicine 12/23/18 Lara Ontiveros MD [address] [place] [address] Rhonda@[email or web address] Primary Oncologist Medical Oncology 12/23/18 Massiel Devine MD, MPH [address] [place] [address] Princess@[email or web address] Primary Oncologist Radiation Oncology 12/23/18 Adam Ngo MD, MS [address] [place] [address] SEDA@[facility] Primary Oncologist Surgical Oncology 12/23/18 Yonas Hernández MD [address] [place] [address] Referring Physician Hematology and Oncology 01/06/19 documented as of this encounter Additional Source Comments The information contained in this document represents components of the legal health record. It is not the complete legal health record.[facility]
--- OUTSIDE RECORDS SUMMARY | 2025-01-28 07:57 | XMS_ITS | Encounter Summary ---
Author Organization [facility] Address [address] [place] [address] [place] [address] Phone Care Team Providers Care Oracle Applications Analyst Name Role Phone Justin Bangura MD Primary Care Provider [phone] Justin Bangura MD Unavailable [phone] Lara Ontiveros MD Unavailable [phone] Massiel Devine MD, MPH Unavailable + [phone] Adam Ngo MD, MS Unavailable Yonas Hernández MD Unavailable [phone] Encounter Details Date Type Department Care Team (Late st Contact Info) Description 12/28/2020 Procedure Pass [facility] Imaging Department, [place] [facility] [place] 450 [facility], Floor L1 [place] [address] Social History Tobacco Use Types Packs/Day Years [...] Procedure Pass [facility] 70 [place] [address] 08/13/2024 Procedure Pass [facility] Radiology 70 [place] [address] 08/22/2025 10:30 AM EDT Appointment [facility] Radiology 70 [place] [address] Lara Ontiveros MD [address] [place] [address] Rhonda@[email or web address] 08/26/2025 2:00 PM EDT Office Visit [facility], [facility] [place] [address] [place] [address], 6th [place] [address] Lara Ontiveros MD [address] [place] [address] [email or web address] documented as of this encounter Visit Diagnoses Not on filedocumented in this encounter Care Teams Oracle Applications Analyst Relationship Specialty Start Date End Date Justin Bangura MD [address] [employer] [address] [address] PCP - General Internal Medicine 12/23/18 Justin Bangura MD [facility] [employer] [address] [address] Referring Physician Internal Medicine 12/23/18 Lara Ontiveros MD [address] [place] [address] Rhonda@[email or web address] Primary Oncologist Medical Oncology 12/23/18 Massiel Devine MD, MPH [address] [place] [address] [email or web address] Primary Oncologist Radiation Oncology 12/23/18 Adam Ngo MD, MS [address] [place] [address] SEDA@[email or web address] Primary Oncologist Surgical Oncology 12/23/18 Yonas Hernández MD [address] [place] [address] Referring Physician Hematology and Oncology 01/06/19 documented as of this encounter Additional Source Comments The information contained in this document represents components of the legal health record. It is not the complete legal health record.[facility]
--- OUTSIDE RECORDS SUMMARY | 2025-01-28 07:57 | XMS_ITS | Encounter Summary ---
Author Organization [facility] Address [address] [place] [address] [place] [address] Phone Care Team Providers Care Freight Hustler Name Role Phone Justin Bangura MD Primary Care Provider [phone] Justin Bangura MD Unavailable [phone] Lara Ontiveros MD Unavailable [phone] Massiel Devine MD, MPH Unavailable + [phone] Adam Ngo MD, MS Unavailable Yonas Hernández MD Unavailable [phone] Encounter Details Date Type Department Care Team (Late st Contact Info) Description 08/24/2020 Procedure Pass [facility] Imaging Department, [facility] [place], [place] 450 [facility], Floor L1 [place] [address] Social History Tobacco Use Types Packs/Day Years [...] Procedure Pass [facility] 70 [place] [address] 08/13/2024 Procedure Pass [facility]iology 70 [place] [address] 08/22/2025 10:30 AM EDT Appointment [facility] Radiology 70 [place] [address] Lara Ontiveros MD [address] [place] [address] Rhonda@[facility] 08/26/2025 2:00 PM EDT Office Visit [facility], [facility] [place] [address] [place] [address], 6th [place] [address] Lara Ontiveros MD [address] [place] [address] Rhonda@[facility] documented as of this encounter Visit Diagnoses Not on filedocumented in this encounter Care Teams Freight Hustler Relationship Specialty Start Date End Date Justin Bangura MD [address] [employer] [address] [address] PCP - General Internal Medicine 12/23/18 Justin Bangura MD [facility] [employer] [address] [address] Referring Physician Internal Medicine 12/23/18 Lara Ontiveros MD [address] [place] [address] Rhonda@[email or web address] Primary Oncologist Medical Oncology 12/23/18 Massiel Devine MD, MPH [address] [place] [address] [email or web address] Primary Oncologist Radiation Oncology 12/23/18 Adam Ngo MD, MS [address] [place] [address] SEDA@[email or web address] Primary Oncologist Surgical Oncology 12/23/18 Yonas Hernández MD [address] [place] [address] Referring Physician Hematology and Oncology 01/06/19 documented as of this encounter Additional Source Comments The information contained in this document represents components of the legal health record. It is not the complete legal health record.[facility]
--- OUTSIDE RECORDS SUMMARY | 2025-01-28 07:57 | XMS_ITS | Encounter Summary ---
Author Organization [facility] Address [address] [place] [address] [place] [address] Phone Care Team Providers Care Manager Data Center Name Role Phone Justin Bangura MD Primary Care Provider [phone] Justin Bangura MD Unavailable [phone] Lara Ontiveros MD Unavailable [phone] Massiel Devine MD, MPH Unavailable + [phone] Adam Ngo MD, MS Unavailable Yonas Hernández MD Unavailable [phone] Encounter Details Date Type Department Care Team (Late st Contact Info) Description 11/07/2022 Procedure Pass [facility] Imaging Department, [facility] [place], [place] 450 [facility], Floor L1 [place] [address] Social History Tobacco Use Types Packs/Day Years [...] st Contact Info) Description 08/13/2024 Procedure Pass [facility] Radiology 70 [place] [address] 08/13/2024 Procedure Pass [facility] 70 [place] [address] 08/22/2025 10:30 AM EDT Appointment [facility] Radiology [address] [place] [address] Lara Ontiveros MD [address] [place] [address] Rhonda@[facility] 08/26/2025 2:00 PM EDT Office Visit [facility], [facility] [facility] [place] [address] [place] [address], 6th [place] [address] Lara Ontiveros MD [address] [place] [address] Rhonda@[facility] documented as of this encounter Visit Diagnoses Not on filedocumented in this encounter Care Teams Manager Data Center Relationship Specialty Start Date End Date Justin Bangura MD [address] [place] [address] PCP - General Internal Medicine 12/23/18 Justin Bangura MD [address] [place] [address] Referring Physician Internal Medicine 12/23/18 Lara Ontiveros MD [address] [place] [address] [email or web address] Primary Oncologist Medical Oncology 12/23/18 Massiel Devine MD, MPH [address] [place] [address] Princess@[email or web address] Primary Oncologist Radiation Oncology 12/23/18 Adam Ngo MD, MS [address] [place] [address] SEDA@[email or web address] Primary Oncologist Surgical Oncology 12/23/18 Yonas Hernández MD [address] [place] [address] Referring Physician Hematology and Oncology 01/06/19 documented as of this encounter Additional Source Comments The information contained in this document represents components of the legal health record. It is not the complete legal health record.[facility]
--- OUTSIDE RECORDS SUMMARY | 2025-01-28 07:57 | XMS_ITS | Encounter Summary ---
Author Organization [facility] Address [address] [place] [address] [place] [address] Phone Care Team Providers Care Financial Report Service Sales Agent Name Role Phone Justin Bangura MD Primary Care Provider [phone] Justin Bangura MD Unavailable [phone] Lara Ontiveros MD Unavailable [phone] Massiel Devine MD, MPH Unavailable + [phone] Adam Ngo MD, MS Unavailable Yonas Hernández MD Unavailable [phone] Encounter Details Date Type Department Care Team (Late st Contact Info) Description 05/03/2021 Procedure Pass [facility] Imaging Department, [facility] [place] [address] [facility], Floor L1 [place] [address] Social History Tobacco Use Types Packs/Day Years [...] [facility] 70 [place] [address] 08/13/2024 Procedure Pass [facility] 70 [place] [address] 08/22/2025 10:30 AM EDT Appointment [facility] Radiology 70 [place] [address] Lara Ontiveros MD [address] [place] [address] [email or web address] 08/26/2025 2:00 PM EDT Office [facility], [facility] [place] [address] [place] [address], 6th [place] [address] Lara Ontiveros MD [address] [place] [address] Rhonda@[email or web address] documented as of this encounter Visit Diagnoses Not on filedocumented in this encounter Care Teams Financial Report Service Sales Agent Relationship Specialty Start Date End Date Justin Bangura MD [address] [employer] [address] [address] PCP - General Internal Medicine 12/23/18 Justin Bangura MD [facility] [employer] [address] [address] Referring Physician Internal Medicine 12/23/18 Lara Ontiveros MD [address] [place] [address] [email or web address] Primary Oncologist Medical Oncology 12/23/18 Massiel Devine MD, MPH [address] [place] [phone] [email or web address] Primary Oncologist Radiation Oncology 12/23/18 Adam Ngo MD, MS [address] [place] [address] [email or web address] Primary Oncologist Surgical Oncology 12/23/18 Yonas Hernández MD [address] [place] [address] Referring Physician Hematology and Oncology 01/06/19 documented as of this encounter Additional Source Comments The information contained in this document represents components of the legal health record. It is not the complete legal health record.[facility]
--- OUTSIDE RECORDS SUMMARY | 2025-01-28 07:57 | XMS_ITS | Encounter Summary ---
Author Organization [facility] Address [address] [place] [address] [place] [address] Phone Care Team Providers Care Front Facer Name Role Phone Justin Bangura MD Primary Care Provider [phone] Justin Bangura MD Unavailable [phone] Lara Ontiveros MD Unavailable [phone] Massiel Devine MD, MPH Unavailable + [phone] Adam Ngo MD, MS Unavailable Yonas Hernández MD Unavailable [phone] Encounter Details Date Type Department Care Team (Late st Contact Info) Description 11/20/2019 Procedure Pass [facility] Imaging Department, [facility] [place] [address] [facility], Floor L1 [place] [address] Social History Tobacco Use Types Packs/Day Years [...] Procedure [facility] 70 [place] [address] 08/13/2024 Procedure Pass [facility]iology 70 [place] [address] 08/22/2025 10:30 AM EDT Appointment [facility] Radiology 70 [place] [address] Lara Ontiveros MD [address] [place] [address] Rhonda@[facility] 08/26/2025 2:00 PM EDT Office Visit [facility], [facility] [place] [address] [place] [address], 6th [place] [address] Lara Ontiveros MD [address] [place] [address] Rhonda@[facility] documented as of this encounter Visit Diagnoses Not on filedocumented in this encounter Care Teams Front Facer Relationship Specialty Start Date End Date Justin Bangura MD [address] [employer] [address] [address] PCP - General Internal Medicine 12/23/18 Justin Bangura MD [address] [employer] [address] [address] Referring Physician Internal Medicine 12/23/18 Lara Ontiveros MD [address] [place] [address] [email or web address] Primary Oncologist Medical Oncology 12/23/18 Massiel Devine MD, MPH [address] [place] [address] [email or web address] Primary Oncologist Radiation Oncology 12/23/18 Adam Ngo MD, MS [address] [place] [address] [email or web address] Primary Oncologist Surgical Oncology 12/23/18 Yonas Hernández MD [address] [place] [address] Referring Physician Hematology and Oncology 01/06/19 documented as of this encounter Additional Source Comments The information contained in this document represents components of the legal health record. It is not the complete legal health record.[facility]
--- OUTSIDE RECORDS SUMMARY | 2025-01-28 07:57 | XMS_ITS | Encounter Summary ---
Author Organization [facility] Address [address] [place] [address] [place] [address] Phone Care Team Providers Care Resin Filterer Name Role Phone Justin Bangura MD Primary Care Provider [phone] Justin Bangura MD Unavailable [phone] Lara Ontiveros MD Unavailable [phone] Massiel Devine MD, MPH Unavailable + [phone] Adam Ngo MD, MS Unavailable Yonas Hernández MD Unavailable [phone] Encounter Details Date Type Department Care Team (Late st Contact Info) Description 11/01/2021 Procedure Pass [facility] Imaging Department, [place] [facility] [place] [address] [facility], Floor L1 [place] [address] Social History Tobacco Use Types Packs/Day Years [...] Procedure Pass [facility] 70 [place] [address] 08/13/[address] [facility] 70 [place] [address] 08/22/2025 10:30 AM EDT Appointment [facility] Radiology 70 [place] [address] Lara Ontiveros MD [address] [place] [address] Rhonda@[email or web address] 08/26/2025 2:00 PM EDT Office Visit [facility], [facility] [place] [address] [place] [address], 6th [place] [address] Lara Ontiveros MD [address] [place] [address] [email or web address] documented as of this encounter Visit Diagnoses Not on filedocumented in this encounter Care Teams Resin Filterer Relationship Specialty Start Date End Date Justin Bangura MD [address] [employer] [address] [address] PCP - General Internal Medicine 12/23/18 Justin Bangura MD [facility] [employer] [address] [address] Referring Physician Internal Medicine 12/23/18 Lara Ontiveros MD [address] [place] [address] [email or web address] Primary Oncologist Medical Oncology 12/23/18 Massiel Devine MD, MPH [address] [place] [address] [email or web address] Primary Oncologist Radiation Oncology 12/23/18 Adam Ngo MD, MS [address] [place] [address] [email or web address] Primary Oncologist Surgical Oncology 12/23/18 Yonas Hernández MD [address] [place] [address] Referring Physician Hematology and Oncology 01/06/19 documented as of this encounter Additional Source Comments The information contained in this document represents components of the legal health record. It is not the complete legal health record.[facility]
--- OUTSIDE RECORDS SUMMARY | 2025-01-28 07:57 | XMS_ITS | Encounter Summary ---
Author Organization [facility] Address [address] [place] [address] [place] [address] Phone Care Team Providers Care Launch Steward Name Role Phone Justin Bangura MD Primary Care Provider [phone] Justin Bangura MD Unavailable [phone] Lara Ontiveros MD Unavailable [phone] Massiel Devine MD, MPH Unavailable + [phone] Adam Ngo MD, MS Unavailable Yonas Hernández MD Unavailable [phone] Encounter Details Date Type Department Care Team (Late st Contact Info) Description 11/07/2022 Procedure Pass [facility], [facility] [place] [address] [facility], Floor L1 [place] [address] Social History Tobacco Use Types Packs/Day Years [...] st Contact Info) Description 08/13/2024 [facility] 70 [place] [address] 08/13/2024 [facility] [address] [place] [address] 08/22/2025 10:30 AM EDT Appointment [facility] [address] [place] [address] Lara Ontiveros MD [address] [place] [address] [email or web address] 08/26/2025 2:00 PM EDT Office Visit [facility], [place] [facility] [place] [address] [place] [address], 6th [place] [address] Lara Ontiveros MD [address] [place] [address] [email or web address] documented as of this encounter Visit Diagnoses Not on filedocumented in this encounter Care Teams Launch Steward Relationship Specialty Start Date End Date Justin Bangura MD [address] [place] [address] PCP - General Internal Medicine 12/23/18 Justin Bangura MD [address] [place] [address] Referring Physician Internal Medicine 12/23/18 Lara Ontiveros MD [address] [place] [address] [email or web address] Primary Oncologist Medical Oncology 12/23/18 Massiel Devine MD, MPH [address] [place] [phone] [email or web address] Primary Oncologist Radiation Oncology 12/23/18 Adam Ngo MD, MS [address] [place] [address] [email or web address] Primary Oncologist Surgical Oncology 12/23/18 Yonas Hernández MD [address] [place] [address] Referring Physician Hematology and Oncology 01/06/19 documented as of this encounter Additional Source Comments The information contained in this document represents components of the legal health record. It is not the complete legal health record.[facility]
--- OUTSIDE RECORDS SUMMARY | 2025-01-28 07:57 | XMS_ITS | Encounter Summary ---
Author Organization [facility] Address [address] [place] [address] [place] [address] Phone Care Team Providers Care Doorperson Name Role Phone Justin Bangura MD Primary Care Provider [phone] Justin Bangura MD Unavailable [phone] Lara Ontiveros MD Unavailable [phone] Massiel Devine MD, MPH Unavailable + [phone] Adam Ngo MD, MS Unavailable Yonas Hernández MD Unavailable [phone] Encounter Details Date Type Department Care Team (Late st Contact Info) Description 11/01/2021 Procedure Pass [facility] Imaging Department, [place] [place] [facility] [place] [address] [facility], Floor L1 [place] [address] Social History Tobacco Use Types Packs/Day Years [...] Procedure Pass [facility] [address] [place] [address] 08/13/2024 Procedure Pass [facility] 70 [place] [address] 08/22/2025 10:30 AM EDT Appointment [facility] Radiology [address] [place] [address] Lara Ontiveros MD [address] [place] [address] Rhonda@[email or web address] 08/26/2025 2:00 PM EDT Office Visit [facility], [facility] [place] [address] [place] [address], 6th [place] [address] Lara Ontiveros MD [address] [place] [address] [email or web address] documented as of this encounter Visit Diagnoses Not on filedocumented in this encounter Care Teams Doorperson Relationship Specialty Start Date End Date Justin Bangura MD [address] [employer] [address] [address] PCP - General Internal Medicine 12/23/18 Justin Bangura MD [facility] [employer] [address] [address] Referring Physician Internal Medicine 12/23/18 Lara Ontiveros MD [address] [place] [address] [email or web address] Primary Oncologist Medical Oncology 12/23/18 Massiel Devine MD, MPH [address] [place] [address] [email or web address] Primary Oncologist Radiation Oncology 12/23/18 Adam Ngo MD, MS [address] [place] [address] [email or web address] Primary Oncologist Surgical Oncology 12/23/18 Yonas Hernández MD [address] [place] [address] Referring Physician Hematology and Oncology 01/06/19 documented as of this encounter Additional Source Comments The information contained in this document represents components of the legal health record. It is not the complete legal health record.[facility]
== END 2025-01-28 07:54 | disposition home or self-care (01) ==
LOC: HO.RESP 07:53
PROVIDERS: PCP Internal Medicine; Visit Provider Hospitalist
DX: J47.9 Bronchiectasis, uncomplicated (principal); Z87.891 Personal history of nicotine dependence
CPT/HCPCS: 94010; 94727; 94729

== ENCOUNTER → 2025-01-28 07:56 | Outpatient (BNV) | payer BC, SELFPAY | PROVIDERS: PCP Internal Medicine; Visit Provider Hospitalist | DX: J47.9 Bronchiectasis, uncomplicated (principal) | CPT/HCPCS: 94060; 94727; 94729 ==

== ENCOUNTER 2025-02-27 15:12 | Outpatient (AMB) | payer BC, SELFPAY ==
--- NOTE | 2025-02-27 15:15 | MHC.OFFVIS ---
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 She did not require any chemotherapy. She did have a CT scan of the chest back in 2019 at [facility] which I reviewed. She had a small subcentimeter pulmonary nodule in the right upper lobe. No evidence of any bronchiectasis that I could appreciate him mucus plugging. Subsequently after that she did have a CT scan of the chest that also personally reviewed from 2023 [facility]. It appears that she does have some bronchiectatic looking airways primarily left more than right base. But very minimal. No evidence of any mucus plugging. Pulmonary still significantly small now with 2 micro nodules in the right upper lobe area. The patient states that she then had another CAT scan in 2024 at [facility] which I do not have those images available. Did describe some bronchiectatic changes some mucus plugging per report. Will try to get those images as well. To see if the bronchiectatic airways are any significantly different. As far as cough the patient does have some chest congestion some cough at times. Denies any shortness of breath. She stays very active at the gym. Denies any wheezing. She does not use any inhalers. She had a spirometry that at some point which was ?normal ?. He has not had a formal pulmonary function study however. Will go ahead and request her CAT scan from [facility] and will request formal pulmonary function studies at this time. Based on the fact that there is a history of bronchiectasis I do believe the CPT device such as an Acapella valve will be helpful to provide mucus clearing. Will hold off on blood work right now until we can visualize the CAT scan images done at [facility]. Nor inhalers also warranted at this time. Will follow-up in 4 months after her PFTs and if any issues arise she can always call further recommendations. 02/27/2025 the patient is here for pulmonary follow-up visit. Overall the patient has been doing well. She has been using the Acapella valve with good effect. In addition to that she stays active exercising regularly. The patient did undergo pulmonary function studies which I personally reviewed demonstrating normal lung capacity. Her FEV1 to FVC slightly decreased 74% but is still considered within normal limits. She on exam did have some forced expiratory wheezing although very minimal. I do not think she needs inhaler right now but if her symptoms were to worsen she can always call and I can send her an inhaler. She did have a CT scan of the chest back in June 2024 I believe it [facility] and she is going to have another 1 in the spring. Will have her come in after that so we can look at her CAT scan from 07/28/20192024 in 2025 and look at her nodules and look at her bronchiectasis in the mucus plugging. But right now I did reassure her that she does not have anything to worry about with the findings because of very minimal. He is going to get a flu shot today will follow-up in the summer of 2025. [facility] Medical History (Updated 11/04/24 @ 21:48 by Chip Uribe MD) Sarcoma Bronchiectasis Pulmonary nodules Social History Patient Tobacco Use Status: Former Tobacco user Review of Systems Const Denies fever(s) Eyes Reports no additional complaints ENT Reports no additional complaints Card Denies chest pain Resp Reports chest congestion, Reports cough and Denies wheezing GI Reports no additional complaints Musc Reports no additional complaints and Reports as per HPI Skin/Breast Denies rash Neuro Reports no additional complaints Endo Reports no additional complaints Riaz/Lymph Reports no additional complaints Aller/Immun Denies wheezing Physical Exam Vital Signs: Last Vital Signs BP 120/60 02/27/25 15:16 BMI result Body Mass Index 21.0 Const General: comfortable HEENT Head: Yes normocephalic Neck Neck: Yes supple Chest Chest palpation & inspection: normal inspection of the chest Resp Effort & Inspection: normal respiratory effort Auscultation: clear to auscultation bilaterally Cardio Heart sounds: S1 normal heart sound present and S2 normal heart sound present GI Palpation (GI): Soft to palpation Skin General skin exam: no rashes or lesions noted Extrem General: Yes no clubbing, cyanosis or edema Office Procedures Flu Questionnaire Does the patient have a severe egg allergy?: No Does the patient have severe life threatening allergies?: No Does the patient have a fever or illness today?: No Has the patient ever had Guillain-Lorain Syndrome?: No Has the patient ever had any past reaction to a flu shot?: No Immunizations Fluarix [id number] (PF) 45 mcg (15 mcg x 3)/0.5 mL IM syringe Performing Provider: Chip Uribe MD Performing [facility] Administered by: Ruthie Coppola RN on 02/27/25 15:50 Dose Route Admin Location Dispensed Lot Number Expiration Date NDC Commercial Property Manager 0.5 mL IM Right Deltoid 0.5 mL [id number] 10/06/25 68084-398-93 Shuropody VIS Given Date VIS Provided VIS Publication Date 02/27/25 Single Vaccine 24 Eligibility Eligibility Date Funding Source Not [facility] Eligible 02/27/25 Private Assessment & Plan Assessment & Plan (1) Pulmonary nodules: Code(s): R91.8 - Other nonspecific abnormal finding of lung field Category: Medical (2) Bronchiectasis: Code(s): J47.9 - Bronchiectasis, uncomplicated Category: Medical Qualifiers: Bronchiectasis type: uncomplicated Qualified Code(s): J47.9 - Bronchiectasis, uncomplicated Plan [facility] acapella [facility]/flutter valve consider Bloodwork depending on the CT chest findings F/U 6 months Orders: Orders Influenza [id number] Immunization 02/27/25 Z23 - Encounter for immunization Coding Level of Care Code Est Pt Level 4 (92986) Diagnoses Pulmonary nodules R91.8 Bronchiectasis without complication J47.9 Bronchiectasis type: uncomplicated Time Spent (min) 16
[2025-02-27 15:16] VITALS: BP 120/60; BMI 21.0
--- OUTSIDE RECORDS SUMMARY | 2025-02-27 15:16 | XMS_ITS | Encounter Summary ---
Author Organization [facility] Address [address] [place] [address] [place] [address] Phone Care Team Providers Care Ed Tech Name Role Phone Justin Bangura MD Primary Care Provider [phone] Justin Bangura MD Unavailable [phone] Lara Ontiveros MD Unavailable [phone] Massiel Devine MD, MPH Unavailable + [phone] Adam Ngo MD, MSc Unavailable Yonas Hernández MD Unavailable [phone] Encounter Details Date Type Department Care Team (Late st Contact Info) Description 11/01/2021 Procedure Pass [facility] Imaging Department, [place] [facility] [place], [place] [address] [facility], Floor L1 [place] [address] Social History Tobacco Use Types Packs/Day Years [...] Procedure Pass [facility] [address] [place] [address] 08/13/2024 Procedure Pass [facility] [address] [place] [address] 08/22/2025 10:30 AM EDT Appointment [facility] Radiology 70 [place] [address] Lara Ontiveros MD [address] [place] [address] [email or web address] 08/26/2025 2:00 PM EDT Office Visit [facility], [facility] [place] [address] [place] [address], 6th [place] [address] Lara Ontiveros MD [address] [place] [address] [email or web address] documented as of this encounter Visit Diagnoses Not on filedocumented in this encounter Care Teams Ed Tech Relationship Specialty Start Date End Date Justin Bangura MD [address] [employer] [address] [address] PCP - General Internal Medicine 12/23/18 Justin Bangura MD [facility] [employer] [address] [address] Referring Physician Internal Medicine 12/23/18 Lara Ontiveros MD [address] [place] [address] [email or web address] Primary Oncologist Medical Oncology 12/23/18 Massiel Devine MD, MPH [address] [place] [address] [email or web address] Primary Oncologist Radiation Oncology 12/23/18 Adam Ngo MD, MSc [address] [place] [address] [email or web address] Primary Oncologist Surgical Oncology 12/23/18 Yonas Hernández MD [address] [place] [address] Referring Physician Hematology and Oncology 01/06/19 documented as of this encounter Additional Source Comments The information contained in this document represents components of the legal health record. It is not the complete legal health record.[facility]
--- OUTSIDE RECORDS SUMMARY | 2025-02-27 15:16 | XMS_ITS | Encounter Summary ---
Author Organization [facility] Address [address] [place] [address] [place] [address] Phone Care Team Providers Care Diesel Powerplant Supervisor Name Role Phone Justin Bangura MD Primary Care Provider [phone] Justin Bangura MD Unavailable [phone] Lara Ontiveros MD Unavailable [phone] Massiel Devine MD, MPH Unavailable + [phone] Adam Ngo MD, MSc Unavailable Yonas Hernández MD Unavailable [phone] Encounter Details Date Type Department Care Team (Late st Contact Info) Description 04/27/2020 Procedure Pass [facility] Imaging Department, [place] [facility] [place], [place] 450 [facility], Floor L1 [place] [address] Social History Tobacco Use Types Packs/Day Years [...] Procedure Pass [facility] 70 [place] [address] 08/13/2024 Procedure Pass [facility] Radiology [address] [place] [address] 08/22/2025 10:30 AM EDT Appointment [facility] Radiology 70 [place] [address] Lara Ontiveros MD [address] [place] [address] Rhonda@[email or web address] 08/26/2025 2:00 PM EDT Office Visit [facility], [facility] [place] [address] [place] [address], 6th [place] [address] Lara Ontiveros MD [address] [place] [address] Rhonda@[facility] documented as of this encounter Visit Diagnoses Not on filedocumented in this encounter Care Teams Diesel Powerplant Supervisor Relationship Specialty Start Date End Date Justin Bangura MD 300 [employer] [address] [address] PCP - General Internal Medicine 12/23/18 Justin Bangura MD [facility] [employer] [address] [address] Referring Physician Internal Medicine 12/23/18 Lara Ontiveros MD [address] [place] [address] [email or web address] Primary Oncologist Medical Oncology 12/23/18 Massiel Devine MD, MPH [address] [place] [address] [email or web address] Primary Oncologist Radiation Oncology 12/23/18 Adam Ngo MD, MSc [address] [place] [address] [email or web address] Primary Oncologist Surgical Oncology 12/23/18 Yonas Hernández MD [address] [place] [address] Referring Physician Hematology and Oncology 01/06/19 documented as of this encounter Additional Source Comments The information contained in this document represents components of the legal health record. It is not the complete legal health record.[facility]
--- OUTSIDE RECORDS SUMMARY | 2025-02-27 15:16 | XMS_ITS | Encounter Summary ---
Author Organization [facility] Address [address] [place] [address] [place] [address] Phone Care Team Providers Care Parts Lister Name Role Phone Justin Bangura MD Primary Care Provider [phone] Justin Bangura MD Unavailable [phone] Lara Ontiveros MD Unavailable [phone] Massiel Devine MD, MPH Unavailable + [phone] Adam Ngo MD, MSc Unavailable Yonas Hernández MD Unavailable [phone] Encounter Details Date Type Department Care Team (Late st Contact Info) Description 01/06/2019 Procedure Pass [facility] MR Imaging, [place] [address] [place] [address] Social History Tobacco Use Types Packs/Day Years [...] st Contact Info) Description 08/13/2024 Procedure Pass [facility] Radiology 70 [place] [address] 08/13/2024 Procedure Pass [facility] Radiology 70 [place] [address] 08/22/2025 10:30 AM EDT Appointment [facility] Radiology [address] [place] [address] Lara Ontiveros MD [address] [place] [address] Rhonda@[email or web address] 08/26/2025 2:00 PM EDT Office Visit [facility], [facility] [address], 6th [place] [address] Lara Ontiveros MD [address] [place] [address] Rhonda@[email or web address] documented as of this encounter Visit Diagnoses Not on filedocumented in this encounter Care Teams Parts Lister Relationship Specialty Start Date End Date Justin Bangura MD [address] [place] [address] PCP - General Internal Medicine 12/23/18 Justin Bangura MD [address] [place] [address] Referring Physician Internal Medicine 12/23/18 Lara Ontiveros MD [address] [place] [address] [email or web address] Primary Oncologist Medical Oncology 12/23/18 Massiel Devine MD, MPH [address] [place] [address] [email or web address] Primary Oncologist Radiation Oncology 12/23/18 Adam Ngo MD, MSc [address] [place] [address] [email or web address] Primary Oncologist Surgical Oncology 12/23/18 Yonas Hernández MD [address] [place] [address] Referring Physician Hematology and Oncology 01/06/19 documented as of this encounter Additional Source Comments The information contained in this document represents components of the legal health record. It is not the complete legal health record.[facility]
--- OUTSIDE RECORDS SUMMARY | 2025-02-27 15:16 | XMS_ITS | Encounter Summary ---
Author Organization [facility] Address [address] [place] [address] [place] [address] Phone Care Team Providers Care National Coverage Specialist Name Role Phone Justin Bangura MD Primary Care Provider [phone] Justin Bangura MD Unavailable [phone] Lara Ontiveros MD Unavailable [phone] Massiel Devine MD, MPH Unavailable + [phone] Adam Ngo MD, MSc Unavailable Yonas Hernández MD Unavailable [phone] Encounter Details Date Type Department Care Team (Late st Contact Info) Description 11/20/2019 Procedure Pass [facility] Imaging Department, [place] [facility] [place] 450 [facility], Floor L1 [place] [address] Social History Tobacco Use Types Packs/Day Years [...] Procedure Pass [facility] 70 [place] [address] 08/13/2024 Procedure Pass [facility] 70 [place] [address] 08/22/2025 10:30 AM EDT Appointment [facility] Radiology 70 [place] [address] Lara Ontiveros MD [address] [place] [address] Rhonda@[facility] 08/26/2025 2:00 PM EDT Office Visit [facility], [facility] [place] [address] [place] [address], 6th [place] [address] Lara Ontiveros MD [address] [place] [address] Rhonda@[email or web address] documented as of this encounter Visit Diagnoses Not on filedocumented in this encounter Care Teams National Coverage Specialist Relationship Specialty Start Date End Date Justin Bangura MD [address] [employer] [address] [address] PCP - General Internal Medicine 12/23/18 Justin Bangura MD [address] [address] [address] Referring Physician Internal Medicine 12/23/18 Lara Ontiveros MD [address] [place] [address] Rhonda@[email or web address] Primary Oncologist Medical Oncology 12/23/18 Massiel Devine MD, MPH [address] [place] [address] [email or web address] Primary Oncologist Radiation Oncology 12/23/18 Adam Ngo MD, MSc [address] [place] [address] SEDA@[email or web address] Primary Oncologist Surgical Oncology 12/23/18 Yonas Hernández MD [address] [place] [address] Referring Physician Hematology and Oncology 01/06/19 documented as of this encounter Additional Source Comments The information contained in this document represents components of the legal health record. It is not the complete legal health record.[facility]
--- OUTSIDE RECORDS SUMMARY | 2025-02-27 15:16 | XMS_ITS | Encounter Summary ---
Author Organization [facility] Address [address] [place] [address] [place] [address] Phone Care Team Providers Care Party Plan Salesperson Name Role Phone Justin Bangura MD Primary Care Provider [phone] Justni Bangura MD Unavailable [phone] Lara Ontiveros MD Unavailable [phone] Massiel Devine MD, MPH Unavailable + [phone] Adam Ngo MD, MSc Unavailable Yonas Hernández MD Unavailable [phone] Encounter Details Date Type Department Care Team (Late st Contact Info) Description 11/07/2022 Procedure Pass [facility] Imaging [facility], [facility] [place] 450 [facility], Floor L1 [place] [address] Social History Tobacco Use Types Packs/Day Years [...] st Contact Info) Description 08/13/2024 Procedure Pass [facility] Radiology 70 [place] [address] 08/13/2024 Procedure Pass [facility] Radiology 70 [place] [address] 08/22/2025 10:30 AM EDT Appointment [facility] Radiology [address] [place] [address] Lara Ontiveros MD [address] [place] [address] Rhonda@[facility] 08/26/2025 2:00 PM EDT Office Visit [facility], [facility] [facility] [place] [address] [place] [address], 6th [place] [address] Lara Ontiveros MD [address] [place] [address] Rhonda@[facility] documented as of this encounter Visit Diagnoses Not on filedocumented in this encounter Care Teams Party Plan Salesperson Relationship Specialty Start Date End Date Justin Bangura MD [address] [place] [address] PCP - General Internal Medicine 12/23/18 Justin Bangura MD [address] [place] [address] Referring Physician Internal Medicine 12/23/18 Lara Ontiveros MD [address] [place] [address] Rhonda@[email or web address] Primary Oncologist Medical Oncology 12/23/18 Massiel Devine MD, MPH [address] [place] [address] Princess@[email or web address] Primary Oncologist Radiation Oncology 12/23/18 Adam Ngo MD, MSc [address] [place] [address] SEDA@[email or web address] Primary Oncologist Surgical Oncology 12/23/18 Yonas Hernández MD [address] [place] [address] Referring Physician Hematology and Oncology 01/06/19 documented as of this encounter Additional Source Comments The information contained in this document represents components of the legal health record. It is not the complete legal health record.[facility]
--- OUTSIDE RECORDS SUMMARY | 2025-02-27 15:16 | XMS_ITS | Encounter Summary ---
Author Organization [facility] Address [address] [place] [address] [place] [address] Phone Care Team Providers Care Sisal Operator Name Role Phone Justin Bangura MD Primary Care Provider [phone] Justin Bangura MD Unavailable [phone] Lara Ontiveros MD Unavailable [phone] Massiel Devine MD, MPH Unavailable + [phone] Adam Ngo MD, MSc Unavailable Yonas Hernández MD Unavailable [phone] Encounter Details Date Type Department Care Team (Late st Contact Info) Description 12/23/2019 Procedure Pass [facility] Imaging Department, [place] [place] 450 [facility], Floor L1 [place] [address] Social History Tobacco Use Types Packs/Day Years [...] Procedure Pass [facility] 70 [place] [address] 08/13/2024 Procedure Pass [facility] 70 [place] [address] 08/22/2025 10:30 AM EDT Appointment [facility] Radiology 70 [place] [address] Lara Ontiveros MD [address] [place] [address] Rhonda@[facility] 08/26/2025 2:00 PM EDT Office Visit [facility], [facility] [place] [address] [place] [address], 6th [place] [address] Lara Ontiveros MD [address] [place] [address] Rhonda@[email or web address] documented as of this encounter Visit Diagnoses Not on filedocumented in this encounter Care Teams Sisal Operator Relationship Specialty Start Date End Date Justin Bangura MD [address] [employer] [address] [address] PCP - General Internal Medicine 12/23/18 Justin Bangura MD [address] [employer] [address] [address] Referring Physician Internal Medicine 12/23/18 Lara Ontiveros MD [address] [place] [address] Rhonda@[email or web address] Primary Oncologist Medical Oncology 12/23/18 Massiel Devine MD, MPH [address] [place] [address] [email or web address] Primary Oncologist Radiation Oncology 12/23/18 Adam Ngo MD, MSc [address] [place] [address] [email or web address] Primary Oncologist Surgical Oncology 12/23/18 Yonas Hernández MD [address] [place] [address] Referring Physician Hematology and Oncology 01/06/19 documented as of this encounter Additional Source Comments The information contained in this document represents components of the legal health record. It is not the complete legal health record.[facility]
--- OUTSIDE RECORDS SUMMARY | 2025-02-27 15:16 | XMS_ITS | Clinical Summary ---
Author Organization [facility] Address [address] [place] [address] [place] [address] Phone Care Team Providers Care Projects Manager Name Role Phone Justin Bangura MD Primary Care Provider [phone] Justin Bangura MD Unavailable [phone] Lara Ontiveros MD Unavailable [phone] Massiel Devine MD, MPH Unavailable [phone] Adam Ngo MD, MSc Unavailable Yonas Hernández MD Unavailable [phone] Allergies No known active allergies Medications [...] st Contact Info) Description 08/13/2024 Procedure Pass [facility] 70 [place] [address] 08/13/2024 Procedure Pass [facility] 70 [place] [address] 08/22/2025 10:30 AM EDT Appointment [facility] 70 [place] [address] Lara Ontiveros MD [address] [place] [address] Rhonda@[email or web address] 08/26/2025 2:00 PM EDT Office Visit [facility], [facility] [place] [address] [place] [address], 6th [place] [address] Lara Ontiveros MD [address] [place] [address] Rhonda@[email or web address] Health Maintenance Due Date Last Done Comments [...] on patient's age to complete this topic IPV VACCINES Aged Out No longer eligi ble based on patient's age to complete this topic MENINGOCOCCAL VACCINES (ACWY) Aged Out No longer eligible based on patient's age to complete this topic MENINGOCOCCAL VACCINES (B) Aged Out N o longer eligible based on patient's age to complete this topic Medical Devices Implanted Type Area Captain Room Service Device Identifier Shelf Expiration Date Model / Serial / Lot Graft Mesh 8x10in Phasix Synthetic Monofilament Woven Resorbable Rectangular - [id number] Implanted:Qty: 1 on 04/08/2019 by Adam Ngo MD, MSc at [facility] [place] 10/04/2020 [id number] / / [id number] K-Wire Bone 9in 0.062 Ss Smooth [place] Dual Pk/6ea - [id number] Implanted:Qty: 1 on 04/08/2019 by Adam Ngo MD, MSc at [facility] Abdomen [employer] [id number] / / [place] [address] [place] [address] [address] [place] [address] CROSS OUT OF STATE PPO BLUE CROSS OUT OF STATE PPO BLUE CROSS OUT OF STATE PPO [place], [place] BLUE [place] OUT OF [place] PPO [place], [place] [facility] OUT OF STATE PPO [place], [place], [place], [place] Advance Directives For more information, please contact: [phone] (9AM - 5PM [place], Sunday-Sunday) * Full Code (Presumed) (Latest Code Status on File) Date Activated Date Inactivated Comments 04/08/2019 1:40 PM 04/10/2019 2:37 PM * Full Code (Presumed) Date Activated Date Inactivated Comments 04/08/2019 6:36 AM 04/08/2019 1:40 PM Care Teams Projects Manager Relationship Specialty Start Date End Date Justin Bangura MD 300 [employer] [address] [place] [address] PCP - General Internal Medicine 12/23/18 Justin Bangura MD [address] [employer] [address] [address] Referring Physician Internal Medicine 12/23/18 Lara Ontiveros MD [address] [place] [address] [email or web address] Primary Oncologist Medical Oncology 12/23/18 Massiel Devine MD, MPH [address] [place] [address] [email or web address] Primary Oncologist Radiation Oncology 12/23/18 Adam Ngo MD, MSc [address] [place] [phone] [email or web address] Primary Oncologist Surgical Oncology 12/23/18 Yonas Heránndez MD [facility] [place] [address] Referring Physician Hematology and Oncology 01/06/19 Additional Source Comments The information contained in this document represents components of the legal health record. It is not the complete legal health record.[facility]
--- OUTSIDE RECORDS SUMMARY | 2025-02-27 15:16 | XMS_ITS | Encounter Summary ---
Author Organization [facility] Address [address] [place] [address] [place] [address] Phone Care Team Providers Care Agronomy Research Manager Name Role Phone Justin Bangura MD Primary Care Provider [phone] Justin Bangura MD Unavailable [phone] Lara Ontiveros MD Unavailable [phone] Massiel Devine MD, MPH Unavailable + [phone] Adam Ngo MD, MSc Unavailable Yonas Hernández MD Unavailable [phone] Encounter Details Date Type Department Care Team (Late st Contact Info) Description 11/07/2022 Procedure Pass [facility] Imaging Department, [facility] Cancer [place], [place] 450 [facility], Floor L1 [place] [address] Social History Tobacco Use Types Packs/Day Years [...] st Contact Info) Description 08/13/2024 Procedure Pass [facility] Radiology 70 [place] [address] 08/13/2024 Procedure Pass [facility] Radiology 70 [place] [address] 08/22/2025 10:30 AM EDT Appointment [facility] Radiology [address] [place] [address] Lara Ontiveros MD [address] [place] [address] Rhonda@[facility] 08/26/2025 2:00 PM EDT Office Visit [facility], [facility] [facility] [place] [address] [place] [address], 6th [place] [address] Lara Ontiveros MD [address] [place] [address] Rhonda@[email or web address] documented as of this encounter Visit Diagnoses Not on filedocumented in this encounter Care Teams Agronomy Research Manager Relationship Specialty Start Date End Date Justin Bangura MD [address] [place] [address] PCP - General Internal Medicine 12/23/18 Justin Bangura MD [address] [place] [address] Referring Physician Internal Medicine 12/23/18 Lara Ontiveros MD [address] [place] [address] Rhonda@[facility] Primary Oncologist Medical Oncology 12/23/18 Massiel Devine MD, MPH [address] [place] [address] [email or web address] Primary Oncologist Radiation Oncology 12/23/18 Adam Ngo MD, MSc [address] [place] [address] SEDA@[email or web address] Primary Oncologist Surgical Oncology 12/23/18 Yonas Hernández MD [address] [place] [address] Referring Physician Hematology and Oncology 01/06/19 documented as of this encounter Additional Source Comments The information contained in this document represents components of the legal health record. It is not the complete legal health record.[facility]
--- OUTSIDE RECORDS SUMMARY | 2025-02-27 15:16 | XMS_ITS | Encounter Summary ---
Author Organization [facility] Address [address] [facility] [address] [place] [address] Phone Care Team Providers Care Publications Production Supervisor Name Role Phone Justin Bangura MD Primary Care Provider [phone] Justin Bangura MD Unavailable [phone] Lara Ontiveros MD Unavailable [phone] Massiel Devine MD, MPH Unavailable + [phone] Adam Ngo MD, MSc Unavailable Yonas Hernández MD Unavailable [phone] Encounter Details Date Type Department Care Team (Late st Contact Info) Description 11/13/2023 Procedure Pass [facility] 70 [place] [address] Social History Tobacco Use Types Packs/Day Years [...] st Contact Info) Description 08/13/2024 Procedure Pass [facility] Radiology 70 [place] [address] 08/13/2024 Procedure Pass [facility] Radiology 70 [place] [address] 08/22/2025 10:30 AM EDT Appointment [facility] Radiology [address] [place] [address] Lara Ontiveros MD [address] [place] [address] Rhonda@[email or web address] 08/26/2025 2:00 PM EDT Office Visit [facility], [facility] [facility] [place] [address] [place] [address], 6th [place] [address] Lara Ontiveros MD [address] [place] [address] Rhonda@[facility] documented as of this encounter Visit Diagnoses Not on filedocumented in this encounter Care Teams Publications Production Supervisor Relationship Specialty Start Date End Date Justin Bangura MD [address] [place] [address] PCP - General Internal Medicine 12/23/18 Justin Bangura MD [address] [place] [address] Referring Physician Internal Medicine 12/23/18 Lara Ontiveros MD [address] [place] [address] [email or web address] Primary Oncologist Medical Oncology 12/23/18 Massiel Devine MD, MPH [address] [place] [phone] Princess@[email or web address] Primary Oncologist Radiation Oncology 12/23/18 Adam Ngo MD, MSc [address] [place] [address] SEDA@[facility] Primary Oncologist Surgical Oncology 12/23/18 Yonas Hernández MD [address] [place] [address] Referring Physician Hematology and Oncology 01/06/19 documented as of this encounter Additional Source Comments The information contained in this document represents components of the legal health record. It is not the complete legal health record.[facility]
--- OUTSIDE RECORDS SUMMARY | 2025-02-27 15:16 | XMS_ITS | Encounter Summary ---
Author Organization [facility] Address [address] [place] [address] [place] [address] Phone Care Team Providers Care Sales Planning Manager Name Role Phone Justin Bangura MD Primary Care Provider [phone] Justin Bangura MD Unavailable [phone] Lara Ontiveros MD Unavailable +[phone] Massiel Devine MD, MPH Unavailable + [phone] Adam Ngo MD, MSc Unavailable Yonas Hernández MD Unavailable [phone] Encounter Details Date Type Department Care Team (Late st Contact Info) Description 05/10/2022 Procedure Pass [facility] Imaging Department, [place] [facility] [place] 450 [facility], Floor L1 [place] [address] Social History Tobacco Use Types Packs/Day Years [...] Procedure Pass [facility] 70 [place] [address] 08/13/2024 [facility] 70 [place] [address] 08/22/2025 10:30 AM EDT Appointment [facility] Radiology 70 [place] [address] Lara Ontiveros MD [address] [place] [address] Rhonda@[email or web address] 08/26/2025 2:00 PM EDT Office [facility], [facility] [place] [address] [place] [address], 6th [place] [address] Lara Ontiveros MD [address] [place] [address] [email or web address]@[email or web address] documented as of this encounter Visit Diagnoses Not on filedocumented in this encounter Care Teams Sales Planning Manager Relationship Specialty Start Date End Date Justin Bangura MD [address] [employer] [address] [address] PCP - General Internal Medicine 12/23/18 Justin Bangura MD [facility] [employer] [address] [address] Referring Physician Internal Medicine 12/23/18 Lara Ontiveros MD [address] [place] [address] [email or web address] Primary Oncologist Medical Oncology 12/23/18 Massiel Devine MD, MPH [address] [place] [address] [email or web address] Primary Oncologist Radiation Oncology 12/23/18 Adam Nog MD, MSc [address] [place] [address] SEDA@[email or web address] Primary Oncologist Surgical Oncology 12/23/18 Yonas Hernández MD [address] [place] [address] Referring Physician Hematology and Oncology 01/06/19 documented as of this encounter Additional Source Comments The information contained in this document represents components of the legal health record. It is not the complete legal health record.[facility]
--- OUTSIDE RECORDS SUMMARY | 2025-02-27 15:16 | XMS_ITS | Encounter Summary ---
Author Organization [facility] Address [address] [place] [address] [place] [address] Phone Care Team Providers Care Twister Tender Name Role Phone Justin Bangura MD Primary Care Provider [phone] Justin Bangura MD Unavailable [phone] Lara Ontiveros MD Unavailable [phone] Massiel Devine MD, MPH Unavailable + [phone] Adam Ngo MD, MSc Unavailable Yonas Hernández MD Unavailable [phone] Encounter Details Date Type Department Care Team (Late st Contact Info) Description 08/24/2020 Procedure Pass [facility] Imaging Department, [place] [facility] [place] 450 [facility], Floor L1 [place] [address] Social History Tobacco Use Types Packs/Day Years [...] Procedure Pass [facility] 70 [place] [address] 08/13/2024 Procedure Pass [facility] 70 [place] [address] 08/22/2025 10:30 AM EDT Appointment [facility] Radiology 70 [place] [address] Lara Ontiveros MD [address] [place] [address] [email or web address] 08/26/2025 2:00 PM EDT Office Visit [facility], [facility] [place] [address] [place] [address], 6th [place] [address] Lara Ontiveros MD [address] [place] [address] [email or web address] documented as of this encounter Visit Diagnoses Not on filedocumented in this encounter Care Teams Twister Tender Relationship Specialty Start Date End Date Justin Bangura MD [address] [employer] [address] [address] PCP - General Internal Medicine 12/23/18 Justin Bangura MD [facility] [employer] [address] [address] Referring Physician Internal Medicine 12/23/18 Lara Ontiveros MD [address] [place] [address] Rhonda@[email or web address] Primary Oncologist Medical Oncology 12/23/18 Massiel Devine MD, MPH [address] [place] [address] [email or web address] Primary Oncologist Radiation Oncology 12/23/18 Adam Ngo MD, MSc [address] [place] [address] [email or web address] Primary Oncologist Surgical Oncology 12/23/18 Yonas Hernández MD [address] [place] [address] Referring Physician Hematology and Oncology 01/06/19 documented as of this encounter Additional Source Comments The information contained in this document represents components of the legal health record. It is not the complete legal health record.[facility]
--- OUTSIDE RECORDS SUMMARY | 2025-02-27 15:16 | XMS_ITS | Encounter Summary ---
Author Organization [facility] Address [address] [facility] [address] [place] [address] Phone Care Team Providers Care Fancy Sewer Name Role Phone Justin Bangura MD Primary Care Provider [phone] Justin Bangura MD Unavailable [phone] Lara Ontiveros MD Unavailable [phone] Massiel Devine MD, MPH Unavailable + [phone] Adam Ngo MD, MSc Unavailable Yonas Hernández MD Unavailable [phone] Encounter Details Date Type Department Care Team (Late st Contact Info) Description 11/13/2023 Procedure Pass [facility] 70 [place] [address] Social History Tobacco Use Types Packs/Day Years [...] st Contact Info) Description 08/13/2024 Procedure Pass [facility] Radiology 70 [place] [address] 08/13/2024 Procedure Pass [facility] Radiology 70 [place] [address] 08/22/2025 10:30 AM EDT Appointment [facility] Radiology [address] [place] [address] Lara Ontiveros MD [address] [place] [address] Rhonda@[email or web address] 08/26/2025 2:00 PM EDT Office Visit [facility], [facility] [place] [address] [place] [address], 6th [place] [address] Lara Ontiveros MD [address] [place] [address] Rhonda@[email or web address] documented as of this encounter Visit Diagnoses Not on filedocumented in this encounter Care Teams Fancy Sewer Relationship Specialty Start Date End Date Justin Bangura MD [address] [employer] [address] [place] [address] PCP - General Internal Medicine 12/23/18 Justin Bangura MD [address] [employer] [address] [place] [address] Referring Physician Internal Medicine 12/23/18 Lara Ontiveros MD [address] [place] [address] Rhonda@[email or web address] Primary Oncologist Medical Oncology 12/23/18 Massiel Devine MD, MPH [address] [place] [address] Princess@[email or web address] Primary Oncologist Radiation Oncology 12/23/18 Adam Ngo MD, MSc [address] [place] [address] SEDA@[email or web address] Primary Oncologist Surgical Oncology 12/23/18 Yonas Hernández MD [address] [place] [address] Referring Physician Hematology and Oncology 01/06/19 documented as of this encounter Additional Source Comments The information contained in this document represents components of the legal health record. It is not the complete legal health record.[facility]
--- OUTSIDE RECORDS SUMMARY | 2025-02-27 15:16 | XMS_ITS | Encounter Summary ---
Author Organization [facility] Address [address] [place] [address] [place] [address] Phone Care Team Providers Care Cnc Lathe Machine Operator Name Role Phone Justin Bangura MD Primary Care Provider [phone] Justin Bangura MD Unavailable [phone] Lara Ontiveros MD Unavailable [phone] Massiel Devine MD, MPH Unavailable + [phone] Adam Ngo MD, MSc Unavailable Yonas Hernández MD Unavailable [phone] Encounter Details Date Type Department Care Team (Late st Contact Info) Description 05/03/2021 Procedure Pass [facility] Imaging Department, [place] [place], [place] 450 [facility], Floor L1 [place] [address] Social History Tobacco Use Types Packs/Day Years [...] Procedure Pass [facility] 70 [place] [address] 08/13/2024 Procedure Pass [facility] Radiology 70 [place] [address] 08/22/2025 10:30 AM EDT Appointment [facility]iology 70 [place] [address] Lara Ontiveros MD [address] [place] [address] Rhonda@[facility] 08/26/2025 2:00 PM EDT Office Visit [facility], [facility] [place] [address] [place] [address], 6th [place] [address] Lara Ontiveros MD [address] [place] [address] Rhonda@[facility] documented as of this encounter Visit Diagnoses Not on filedocumented in this encounter Care Teams Cnc Lathe Machine Operator Relationship Specialty Start Date End Date Justin Bangura MD 300 [employer] [address] [address] PCP - General Internal Medicine 12/23/18 Justin Bangura MD [facility] [employer] [address] [address] Referring Physician Internal Medicine 12/23/18 Lara Ontiveros MD [address] [place] [address] Rhonda@[email or web address] Primary Oncologist Medical Oncology 12/23/18 Massiel Devine MD, MPH [address] [place] [phone] Princess@[email or web address] Primary Oncologist Radiation Oncology 12/23/18 Adam Ngo MD, MSc [address] [place] [address] [email or web address] Primary Oncologist Surgical Oncology 12/23/18 Yonas Hernández MD [address] [place] [address] Referring Physician Hematology and Oncology 01/06/19 documented as of this encounter Additional Source Comments The information contained in this document represents components of the legal health record. It is not the complete legal health record.[facility]
--- OUTSIDE RECORDS SUMMARY | 2025-02-27 15:16 | XMS_ITS | Encounter Summary ---
Author Organization [facility] Address [address] [place] [address] [place] [address] Phone Care Team Providers Care Observer Electrical Prospecting Name Role Phone Justin Bangura MD Primary Care Provider [phone] Justin Bangura MD Unavailable [phone] Lara Ontiveros MD Unavailable [phone] Massiel Devine MD, MPH Unavailable + [phone] Adam Ngo MD, MSc Unavailable Yonas Hernández MD Unavailable [phone] Encounter Details Date Type Department Care Team (Late st Contact Info) Description 01/21/2019 Procedure Pass [facility] Imaging Department, [facility] [place], [place] [address] [address] Social History Tobacco Use Types Packs/Day Years [...] Procedure Pass [facility] 70 [place] [address] 08/13/2024 Procedure Pass [facility] Radiology 70 [place] [address] 08/22/2025 10:30 AM EDT Appointment [facility] Radiology 70 [place] [address] Lara Ontiveros MD [address] [place] [address] Rhonda@[facility] 08/26/2025 2:00 PM EDT Office [facility] [place] [address] [place] [address], 6th [place] [address] Lara Ontiveros MD [address] [place] [address] Rhonda@[facility] documented as of this encounter Visit Diagnoses Not on filedocumented in this encounter Care Teams Observer Electrical Prospecting Relationship Specialty Start Date End Date Justin Bangura MD [address] [place] [address] PCP - General Internal Medicine 12/23/18 Justin Bangura MD [address] [place] [address] Referring Physician Internal Medicine 12/23/18 Lara Ontiveros MD [address] [place] [address] Rhonda@[email or web address] Primary Oncologist Medical Oncology 12/23/18 Massiel Devine MD, MPH [address] [place] [phone] [email or web address] Primary Oncologist Radiation Oncology 12/23/18 Adam Ngo MD, MSc [address] [place] [phone] [email or web address] Primary Oncologist Surgical Oncology 12/23/18 Yonas Hernández MD [address] [place] [address] Referring Physician Hematology and Oncology 01/06/19 documented as of this encounter Additional Source Comments The information contained in this document represents components of the legal health record. It is not the complete legal health record.[facility]
--- OUTSIDE RECORDS SUMMARY | 2025-02-27 15:16 | XMS_ITS | Encounter Summary ---
Author Organization [facility] Address [address] [place] [address] [place] [address] Phone Care Team Providers Care Right Of Way Maintenance Supervisor Name Role Phone Justin Bangura MD Primary Care Provider [phone] Justin Bangura MD Unavailable [phone] Lara Ontiveros MD Unavailable [phone] Massiel Devine MD, MPH Unavailable + [phone] Adam Ngo MD, MSc Unavailable Yonas Hernández MD Unavailable [phone] Encounter Details Date Type Department Care Team (Late st Contact Info) Description 05/03/2021 Procedure Pass [facility] Imaging Department, [place] [facility] [place], [place] 450 [facility], Floor L1 [place] [address] Social History Tobacco Use Types Packs/Day Years [...] Procedure Pass [facility] 70 [place] [address] 08/13/2024 [facility] 70 [place] [address] 08/22/2025 10:30 AM EDT Appointment [facility] Radiology 70 [place] [address] Lara Ontiveros MD [address] [place] [address] Rhonda@[email or web address] 08/26/2025 2:00 PM EDT Office Visit [facility], [facility] [place] [address] [place] [address], 6th [place] [address] Lara Ontiveros MD [address] [place] [address] Rhonda@[facility] documented as of this encounter Visit Diagnoses Not on filedocumented in this encounter Care Teams Right Of Way Maintenance Supervisor Relationship Specialty Start Date End Date Justin Bangura MD [address] [employer] [address] [address] PCP - General Internal Medicine 12/23/18 Justin Bangura MD [facility] [employer] [address] [address] Referring Physician Internal Medicine 12/23/18 Lara Ontiveros MD [address] [place] [address] Rhonda@[facility] Primary Oncologist Medical Oncology 12/23/18 Massiel Devine MD, MPH [address] [place] [address] Princess@[email or web address] Primary Oncologist Radiation Oncology 12/23/18 Adam Ngo MD, MSc [address] [place] [address] SEDA@[email or web address] Primary Oncologist Surgical Oncology 12/23/18 Yonas Hernández MD [address] [place] [address] Referring Physician Hematology and Oncology 01/06/19 documented as of this encounter Additional Source Comments The information contained in this document represents components of the legal health record. It is not the complete legal health record.[facility]
--- OUTSIDE RECORDS SUMMARY | 2025-02-27 15:16 | XMS_ITS | Encounter Summary ---
Author Organization [facility] Address [address] [place] [address] [place] [address] Phone Care Team Providers Care Pump Oiler Name Role Phone Justin Bangura MD Primary Care Provider [phone] Justin Bangura MD Unavailable [phone] Lara Ontiveros MD Unavailable [phone] Massiel Devine MD, MPH Unavailable + [phone] Adam Ngo MD, MSc Unavailable Yonas Hernández MD Unavailable [phone] Encounter Details Date Type Department Care Team (Late st Contact Info) Description 04/08/2019 Procedure Pass [facility] Periop 75 [place] [address] Social History Tobacco Use Types Packs/Day Years [...] st Contact Info) Description 08/13/2024 Procedure Pass [facility] Radiology 70 [place] [address] 08/13/2024 Procedure Pass [facility] 70 [place] [address] 08/22/2025 10:30 AM EDT Appointment [facility] Radiology 70 [place] [address] Lara Ontiveros MD [address] [place] [address] Rhonda@[facility] 08/26/2025 2:00 PM EDT Office [facility], [facility] [place] [address] [place] [address], 6th [place] [address] Lara Ontiveros MD [address] [place] [address] Rhonda@[facility] documented as of this encounter Visit Diagnoses Not on filedocumented in this encounter Care Teams Pump Oiler Relationship Specialty Start Date End Date Justin Bangura MD [address] [place] [address] PCP - General Internal Medicine 12/23/18 Justin Bangura MD [address] [place] [address] Referring Physician Internal Medicine 12/23/18 Lara Ontiveros MD [address] [place] [address] Rhonda@[email or web address] Primary Oncologist Medical Oncology 12/23/18 Massiel Devine MD, MPH [address] [place] [address] Princess@[email or web address] Primary Oncologist Radiation Oncology 12/23/18 Adam Ngo MD, MSc [address] [place] [phone] SEDA@[email or web address] Primary Oncologist Surgical Oncology 12/23/18 Yonas Hernández MD [address] [place] [address] Referring Physician Hematology and Oncology 01/06/19 documented as of this encounter Additional Source Comments The information contained in this document represents components of the legal health record. It is not the complete legal health record.[facility]
--- OUTSIDE RECORDS SUMMARY | 2025-02-27 15:16 | XMS_ITS | Encounter Summary ---
Author Organization [facility] Address [address] [place] [address] [place] [address] Phone Care Team Providers Care Engineer Technical Staff Name Role Phone Justin Bangura MD Primary Care Provider [phone] Justin Bangura MD Unavailable [phone] Lara Ontiveros MD Unavailable [phone] Massiel Devine MD, MPH Unavailable + [phone] Adam Ngo MD, MSc Unavailable Yonas Hernández MD Unavailable [phone] Encounter Details Date Type Department Care Team (Late st Contact Info) Description 11/20/2019 Procedure Pass [facility] Imaging Department, [place] [facility] [place] 450 [facility], Floor L1 [place] [address] Social History Tobacco Use Types Packs/Day Years [...] Procedure Pass [facility] 70 [place] [address] 08/13/2024 Procedure Pass [facility] 70 [place] [address] 08/22/2025 10:30 AM EDT Appointment [facility] Radiology 70 [place] [address] Lara Ontiveros MD [address] [place] [address] Rhonda@[facility] 08/26/2025 2:00 PM EDT Office Visit [facility], [facility] [place] [address] [place] [address], 6th [place] [address] Lara Ontiveros MD [address] [place] [address] Rhonda@[facility] documented as of this encounter Visit Diagnoses Not on filedocumented in this encounter Care Teams Engineer Technical Staff Relationship Specialty Start Date End Date Justin Bangura MD [address] [employer] [address] [address] PCP - General Internal Medicine 12/23/18 Justin Bangura MD [address] [employer] [address] [address] Referring Physician Internal Medicine 12/23/18 Lara Ontiveros MD [address] [place] [address] Rhonda@[facility] Primary Oncologist Medical Oncology 12/23/18 Massiel Devine MD, MPH [address] [place] [address] Princess@[email or web address] Primary Oncologist Radiation Oncology 12/23/18 Adam Ngo MD, MSc [address] [place] [address] SEDA@[email or web address] Primary Oncologist Surgical Oncology 12/23/18 Yonas Hernández MD [address] [place] [address] Referring Physician Hematology and Oncology 01/06/19 documented as of this encounter Additional Source Comments The information contained in this document represents components of the legal health record. It is not the complete legal health record.[facility]
--- OUTSIDE RECORDS SUMMARY | 2025-02-27 15:16 | XMS_ITS | Encounter Summary ---
Author Organization [facility] Address [address] [place] [address] [place] [address] Phone Care Team Providers Care Animal Impersonator Name Role Phone Justin Bangura MD Primary Care Provider [phone] Justin Bangura MD Unavailable [phone] Lara Ontiveros MD Unavailable [phone] Massiel Devine MD, MPH Unavailable + [phone] Adam Ngo MD, MSc Unavailable Yonsa Hernández MD Unavailable [phone] Encounter Details Date Type Department Care Team (Late st Contact Info) Description 11/01/2021 Procedure Pass [facility] Imaging Department, [place] [facility] [place], [place] 450 [facility], Floor L1 [place] [address] Social History Tobacco Use Types Packs/Day Years [...] Procedure Pass [facility] 70 [place] [address] 08/13/2024 Procedure Pass [facility]iology 70 [place] [address] 08/22/2025 10:30 AM EDT Appointment [facility] Radiology 70 [place] [address] Lara Ontiveros MD [address] [place] [address] [email or web address]@[email or web address] 08/26/2025 2:00 PM EDT Office [facility], [place] [facility] [place] [address] [place] [address], 6th [place] [address] Lara Ontiveros MD [address] [place] [address] [email or web address]@[email or web address] documented as of this encounter Visit Diagnoses Not on filedocumented in this encounter Care Teams Animal Impersonator Relationship Specialty Start Date End Date Justin Bangura MD [address] [employer] [address] [address] PCP - General Internal Medicine 12/23/18 Justin Bangura MD [facility] [employer] [address] [address] Referring Physician Internal Medicine 12/23/18 Lara Ontiveros MD [address] [place] [address] [email or web address] Primary Oncologist Medical Oncology 12/23/18 Massiel Devine MD, MPH [address] [place] [address] [email or web address] Primary Oncologist Radiation Oncology 12/23/18 Adam Ngo MD, MSc [address] [place] [address] [email or web address] Primary Oncologist Surgical Oncology 12/23/18 Yonas Hernández MD [address] [place] [address] Referring Physician Hematology and Oncology 01/06/19 documented as of this encounter Additional Source Comments The information contained in this document represents components of the legal health record. It is not the complete legal health record.[facility]
--- OUTSIDE RECORDS SUMMARY | 2025-02-27 15:16 | XMS_ITS | Encounter Summary ---
Author Organization [facility] Address [address] [place] [address] [place] [address] Phone Care Team Providers Care Derrick Follower Name Role Phone Justin Bangura MD Primary Care Provider [phone] Justin Bangura MD Unavailable [phone] Lara Ontiveros MD Unavailable [phone] Massiel Devine MD, MPH Unavailable + [phone] Adam Ngo MD, MSc Unavailable Yonas Hernández MD Unavailable [phone] Encounter Details Date Type Department Care Team (Late st Contact Info) Description 12/28/2020 Procedure Pass [facility] Imaging Department, [place] [facility] [place] 450 [facility], Floor L1 [place] [address] Social History Tobacco Use Types Packs/Day Years [...] Procedure [facility] 70 [place] [address] 08/13/2024 Procedure Pass [facility] 70 [place] [address] 08/22/2025 10:30 AM EDT Appointment [facility] Radiology 70 [place] [address] Lara Ontiveros MD [address] [place] [address] [email or web address]@[email or web address] 08/26/2025 2:00 PM EDT Office Visit [facility], [place] [place] [address] [place] [address], 6th [place] [address] Lara Ontiveros MD [address] [place] [address] [email or web address] documented as of this encounter Visit Diagnoses Not on filedocumented in this encounter Care Teams Derrick Follower Relationship Specialty Start Date End Date Justin Bangura MD [address] [employer] [address] [address] PCP - General Internal Medicine 12/23/18 Justin Bangura MD [facility] [employer] [address] [address] Referring Physician Internal Medicine 12/23/18 Lara Ontiveros MD [address] [place] [address] Rhonda@[email or web address] Primary Oncologist Medical Oncology 12/23/18 Massiel Devine MD, MPH [address] [place] [address] [email or web address] Primary Oncologist Radiation Oncology 12/23/18 Adam Ngo MD, MSc [address] [place] [address] [email or web address] Primary Oncologist Surgical Oncology 12/23/18 Yonas Hernández MD [address] [place] [address] Referring Physician Hematology and Oncology 01/06/19 documented as of this encounter Additional Source Comments The information contained in this document represents components of the legal health record. It is not the complete legal health record.[facility]
--- OUTSIDE RECORDS SUMMARY | 2025-02-27 15:16 | XMS_ITS | Encounter Summary ---
Author Organization [facility] Address [address] [place] [address] [place] [address] Phone Care Team Providers Care Chemical Processing Laborer Name Role Phone Justin Bangura MD Primary Care Provider [phone] Justin Bangura MD Unavailable [phone] Lara Ontiveros MD Unavailable [phone] Massiel Devine MD, MPH Unavailable + [phone] Adam Ngo MD, MSc Unavailable Yonas Hernández MD Unavailable [phone] Encounter Details Date Type Department Care Team (Late st Contact Info) Description 12/28/2020 Procedure Pass [facility] Imaging Department, [place] [facility] [place] 450 [facility], Floor L1 [place] [address] Social History Tobacco Use Types Packs/Day Years [...] Procedure Pass [facility] 70 [place] [address] 08/13/2024 Procedure Pass [facility] Radiology 70 [place] [address] 08/22/2025 10:30 AM EDT Appointment [facility] Radiology 70 [place] [address] Lara Ontiveros MD [address] [place] [address] Rhonda@[email or web address] 08/26/2025 2:00 PM EDT Office Visit [facility], [place] [place] [address] [place] [address], 6th [place] [address] Lara Ontiveros MD [address] [place] [address] Rhonda@[email or web address] documented as of this encounter Visit Diagnoses Not on filedocumented in this encounter Care Teams Chemical Processing Laborer Relationship Specialty Start Date End Date Justin Bangura MD [address] [employer] [address] [address] PCP - General Internal Medicine 12/23/18 Justin Bangura MD [facility] [employer] [address] [address] Referring Physician Internal Medicine 12/23/18 Lara Ontiveros MD [address] [place] [address] [email or web address] Primary Oncologist Medical Oncology 12/23/18 Massiel Devine MD, MPH [address] [place] [phone] [email or web address]. [facility] Primary Oncologist Radiation Oncology 12/23/18 Adam Ngo MD, MSc [address] [place] [address] [email or web address] Primary Oncologist Surgical Oncology 12/23/18 Yonas Hernández MD [address] [place] [address] Referring Physician Hematology and Oncology 01/06/19 documented as of this encounter Additional Source Comments The information contained in this document represents components of the legal health record. It is not the complete legal health record.[facility]
--- OUTSIDE RECORDS SUMMARY | 2025-02-27 15:16 | XMS_ITS | Encounter Summary ---
Author Organization [facility] Address [address] [place] [address] [place] [address] Phone Care Team Providers Care Senior Process Control Tech Name Role Phone Justin Bangura MD Primary Care Provider [phone] Justin Bangura MD Unavailable [phone] Lara Ontiveros MD Unavailable [phone] Massiel Devine MD, MPH Unavailable + [phone] Adam Ngo MD, MSc Unavailable Yonas Hernández MD Unavailable [phone] Encounter Details Date Type Department Care Team (Late st Contact Info) Description 05/10/2022 Procedure Pass [facility] Imaging Department, [place] [facility] [place] 450 [facility], Floor L1 [place] [address] Social History Tobacco Use Types Packs/Day Years [...] Procedure Pass [facility] 70 [place] [address] 08/13/2024 Procedure Pass [facility]iology 70 [place] [address] 08/22/2025 10:30 AM EDT Appointment [facility] Radiology 70 [place] [address] Lara Ontiveros MD [address] [place] [address] Rhonda@[email or web address] 08/26/2025 2:00 PM EDT Office Visit [facility], [place] [place] [address] [place] [address], 6th [place] [address] Lara Ontiveros MD [address] [place] [address] Rhonda@[email or web address] documented as of this encounter Visit Diagnoses Not on filedocumented in this encounter Care Teams Senior Process Control Tech Relationship Specialty Start Date End Date Justin Bangura MD [address] [email or web address] [address] [address] PCP - General Internal Medicine 12/23/18 Justin Bangura MD [facility] [email or web address] [address] [address] Referring Physician Internal Medicine 12/23/18 Lara Ontiveros MD [address] [place] [address] [email or web address]@[email or web address] Primary Oncologist Medical Oncology 12/23/18 Massiel Devine MD, MPH [address] [place] [phone] [email or web address] Primary Oncologist Radiation Oncology 12/23/18 Adam Ngo MD, MSc [address] [place] [phone] [email or web address] Primary Oncologist Surgical Oncology 12/23/18 Yonas Hernández MD [address] [place] [address] Referring Physician Hematology and Oncology 01/06/19 documented as of this encounter Additional Source Comments The information contained in this document represents components of the legal health record. It is not the complete legal health record.[facility]
--- OUTSIDE RECORDS SUMMARY | 2025-02-27 15:16 | XMS_ITS | Encounter Summary ---
Author Organization [facility] Address [address] [place] [address] [place] [address] Phone Care Team Providers Care Shredder Tender Name Role Phone Justin Bangura MD Primary Care Provider [phone] Justin Bangura MD Unavailable [phone] Lara Ontiveros MD Unavailable [phone] Massiel Devine MD, MPH Unavailable + [phone] Adam Ngo MD, MSc Unavailable Yonas Hernández MD Unavailable [phone] Encounter Details Date Type Department Care Team (Late st Contact Info) Description 08/24/2020 Procedure Pass [facility] Imaging Department, [place] [facility] [place], [place] 450 [facility], Floor L1 [place] [address] Social History Tobacco Use Types Packs/Day Years [...] Procedure [facility] 70 [place] [address] 08/13/2024 Procedure Pass [facility] 70 [place] [address] 08/22/2025 10:30 AM EDT Appointment [facility] Radiology 70 [place] [address] Lara Ontiveros MD [address] [place] [address] [email or web address]@[email or web address] 08/26/2025 2:00 PM EDT Office Visit [facility], [place] [place] [address] [place] [address], 6th [place] [address] Lara Ontiveros MD [address] [place] [phone] [email or web address] documented as of this encounter Visit Diagnoses Not on filedocumented in this encounter Care Teams Shredder Tender Relationship Specialty Start Date End Date Justin Bangura MD [address] [address] [address] PCP - General Internal Medicine 12/23/18 Justin Bangura MD [facility] [employer] [address] [address] Referring Physician Internal Medicine 12/23/18 Lara Ontiveros MD [address] [place] [address] Rhonda@[email or web address] Primary Oncologist Medical Oncology 12/23/18 Massiel Devine MD, MPH [address] [place] [address] [email or web address] Primary Oncologist Radiation Oncology 12/23/18 Adam Ngo MD, MSc [address] [place] [address] SEDA@[email or web address] Primary Oncologist Surgical Oncology 12/23/18 Yonas Hernández MD [address] [place] [address] Referring Physician Hematology and Oncology 01/06/19 documented as of this encounter Additional Source Comments The information contained in this document represents components of the legal health record. It is not the complete legal health record.[facility]
--- OUTSIDE RECORDS SUMMARY | 2025-02-27 15:16 | XMS_ITS | Clinical Summary ---
Author Organization [facility] Address [address] [place] [address] Care Team Providers Care Rn Observation Name Role Phone Unavailable Primary Care Provider [...]
--- OUTSIDE RECORDS SUMMARY | 2025-02-27 15:16 | XMS_ITS | Encounter Summary ---
Author Organization [facility] Address [address] [place] [address] [place] [address] Phone Care Team Providers Care Window Shade Estimator Name Role Phone Justin Bangura MD Primary Care Provider [phone] Justin Bangura MD Unavailable [phone] Lara Ontiveros MD Unavailable [phone] Massiel Devine MD, MPH Unavailable + [phone] Adam Ngo MD, MSc Unavailable Yonas Hernández MD Unavailable [phone] Encounter Details Date Type Department Care Team (Late st Contact Info) Description 12/23/2019 Procedure Pass [facility] Imaging Department, [place] [facility] [place], [place] 450 [facility], Floor L1 [place] [address] Social History Tobacco Use Types Packs/Day Years [...] Procedure [facility] 70 [place] [address] 08/13/2024 Procedure Pass [facility] 70 [place] [address] 08/22/2025 10:30 AM EDT Appointment [facility] Radiology 70 [place] [address] Lara Ontiveros MD [address] [place] [address] Rhonda@[email or web address] 08/26/2025 2:00 PM EDT Office Visit [facility], [facility] [place] [address] [place] [address], 6th [place] [address] Lara Ontiveros MD [address] [place] [address] Rhonda@[email or web address] documented as of this encounter Visit Diagnoses Not on filedocumented in this encounter Care Teams Window Shade Estimator Relationship Specialty Start Date End Date Justin Bangura MD [address] [employer] [address] [address] PCP - General Internal Medicine 12/23/18 Justin Bangura MD [address] [employer] [address] [address] Referring Physician Internal Medicine 12/23/18 Lara Ontiveros MD [address] [place] [address] Rhonda@[email or web address] Primary Oncologist Medical Oncology 12/23/18 Massiel Devine MD, MPH [address] [place] [address] [email or web address] Primary Oncologist Radiation Oncology 12/23/18 Adam Ngo MD, MSc [address] [place] [address] [email or web address] Primary Oncologist Surgical Oncology 12/23/18 Yonas Hernández MD [address] [place] [address] Referring Physician Hematology and Oncology 01/06/19 documented as of this encounter Additional Source Comments The information contained in this document represents components of the legal health record. It is not the complete legal health record.[facility]
--- OUTSIDE RECORDS SUMMARY | 2025-02-27 15:16 | XMS_ITS | Encounter Summary ---
Author Organization [facility] Address [address] [place] [address] [place] [address] Phone Care Team Providers Care Research Executive Name Role Phone Justin Bangura MD Primary Care Provider [phone] Justin Bangura MD Unavailable [phone] Lara Ontiveros MD Unavailable [phone] Massiel Devine MD, MPH Unavailable + [phone] Adam Ngo MD, MSc Unavailable Yonas Hernández MD Unavailable [phone] Encounter Details Date Type Department Care Team (Late st Contact Info) Description 04/27/2020 Procedure Pass [facility] Imaging Department, [place] [facility] [place], [place] 450 [facility], Floor L1 [place] [address] Social History Tobacco Use Types Packs/Day Years [...] Procedure Pass [facility] 70 [place] [address] 08/13/2024 Procedure Pass [facility] 70 [place] [address] 08/22/2025 10:30 AM EDT Appointment [facility]iology 70 [place] [address] Lara Ontiveros MD [address] [place] [address] [email or web address]@[email or web address] 08/26/2025 2:00 PM EDT Office Visit [facility], [place] [place] [address] [place] [address], 6th [place] [address] Lara Ontiveros MD [address] [place] [phone] [email or web address]@[email or web address] documented as of this encounter Visit Diagnoses Not on filedocumented in this encounter Care Teams Research Executive Relationship Specialty Start Date End Date Justin Bangura MD [address] [employer] [address] [address] PCP - General Internal Medicine 12/23/18 Justin Bangura MD [facility] [employer] [address] [address] Referring Physician Internal Medicine 12/23/18 Lara Ontiveros MD [address] [place] [phone] [email or web address] Primary Oncologist Medical Oncology 12/23/18 Massiel Devine MD, MPH [address] [place] [phone] [email or web address] Primary Oncologist Radiation Oncology 12/23/18 Adam Ngo MD, MSc [address] [place] [address] [email or web address] Primary Oncologist Surgical Oncology 12/23/18 Yonas Hernández MD [address] [place] [address] Referring Physician Hematology and Oncology 01/06/19 documented as of this encounter Additional Source Comments The information contained in this document represents components of the legal health record. It is not the complete legal health record.[facility]
== END 2025-02-27 15:49 | disposition home or self-care (01) ==
LOC: HO.HPS 15:12
PROVIDERS: PCP Internal Medicine; Visit Provider Hospitalist
DX: R91.8 Other nonspecific abnormal finding of lung field (principal); J47.9 Bronchiectasis, uncomplicated
CPT/HCPCS: 99214

== ENCOUNTER → 2025-02-27 15:12 | Outpatient (BNVA) | payer BC, SELFPAY | PROVIDERS: PCP Internal Medicine; Visit Provider Hospitalist | DX: Z23 Encounter for immunization (principal) | CPT/HCPCS: 90471; 90656 ==